=== PATIENT | female | born 1935 | race Caucasian/White ===

== ENCOUNTER → 2017-10-23 13:25 | Outpatient (CLI) | payer MEDICARE, SELFPAY ==
--- NOTE | 2017-10-23 13:31 | DI.REPORT_ITS ---
SYMPTOMS/DIAGNOSIS: LT HEEL PAIN, M79.672 LEFT ANKLE: No fracture or ankle mortise widening is seen. The talar dome appears intact. There are minimal degenerative changes. IMPRESSION: Negative left ankle. LEFT FOOT: There are mild deformities of the head of the fifth metatarsal as well as the proximal phalanx of the fifth toe consistent with old healed fractures. No acute fracture or bony erosions are seen. The joint spaces are well maintained. There are no heel spurs or plantar fascial calcification. IMPRESSION: Old healed fractures of the fifth proximal phalanx and head of the fifth metatarsal.
== END ==
PROVIDERS: PCP Internal Medicine; Visit Provider Nurse Practitioner Family
DX: M25.572 Pain in left ankle and joints of left foot (principal); M79.672 Pain in left foot; Z87.81 Personal history of (healed) traumatic fracture
CPT/HCPCS: 73610; 73630

== ENCOUNTER 2018-05-31 12:43 | Outpatient (REF) | payer MEDICARE, SELFPAY ==
[2018-05-31 17:52] LABS: Abs Immature Grans 0.02 k/cumm (0.0-0.09); Absolute Basophil Count 0.02 k/cumm (0.0-0.2); Absolute Eosinophil Count 0.45 k/cumm (0.0-0.7); Absolute Lymphocyte Count 1.65 k/cumm (1.2-3.4); Absolute Monocyte Count 0.49 k/cumm (0.11-0.7); Absolute Neutrophil Count 4.67 k/cumm (1.2-6.7); Basophils % 0.3; Eosinophils % 6.2; HCT 40.7 % (36.0-46.0); HGB 13.2 g/dL (12.0-15.5); Immature Grans % 0.3; Lymphocytes % 22.6; Mean Corp. HGB Concentration 32.4 g/dL (32.0-36.0); Mean Corpuscular Volume 95.5 fL (80-95); Mean Platelet Volume 10.2 fL (8.0-11.0); Monocytes % 6.7; Neutrophils % 63.9; Platelet Count 326 x1000/uL (130-400); RBC 4.26 m/cumm (4.00-5.20)
[2018-05-31 18:13] LABS: ALT 25 U/L (12-78); AST 24 U/L (15-37); Albumin 3.9 g/dL (3.4-5.0); Alkaline Phosphatase 89 U/L (46-116); Anion Gap 9.4 mmol/L (3-11); BUN 16 mg/dL (7-18); Bilirubin, Total 0.3 mg/dL (0.2-1.0); CO2 26.6 mmol/L (21.0-32.0); Calcium 9.8 mg/dL (8.5-10.1); Chloride 104 mmol/L (98-107); Glucose 87 mg/dL (70-100); Potassium 3.8 mmol/L (3.5-5.1); Sodium 140 mmol/L (136-145); Total Protein 7.8 g/dL (6.4-8.2)
[2018-05-31 19:01] LABS: ESR 23 MM/HR (0-30)
[2018-06-03 09:19] LABS: Cyclic Citrullinated Peptide <2.5 U/mL (<5.0)
[2018-06-03 10:03] LABS: Rheumatoid Factor 19 IU/mL (<12.5)
[2018-06-03 14:40] LABS: ANA Interpretation Negative (NEGAT)
== END 2018-05-31 13:03 ==
LOC: NCHCN 12:43
PROVIDERS: PCP Internal Medicine; Visit Provider Internal Medicine
DX: L27.0 Generalized skin eruption due to drugs and medicaments taken internally (principal); M19.90 Unspecified osteoarthritis, unspecified site
CPT/HCPCS: 80053; 85652; 86200; 85025; 86038; 86140; 86431

== ENCOUNTER 2018-07-12 15:31 | Outpatient (REF) | payer MEDICARE, SELFPAY ==
[2018-07-12 20:18] LABS: Bilirubin Small (Negative); Blood Large (Negative); Clarity Cloudy; Glucose Negative (Negative); Ketones Trace mg/dL (Negative); Leukocyte Esterase Small (Negative); Nitrite Negative (Negative); Specific Gravity >= 1.030 (1.005-1.025); Urobilinogen 0.2 EU/dL (Up TO 0.2)
[2018-07-12 20:41] LABS: Bacteria Many HPF (Negative); C & S Indicated? Yes; Casts Negative LPF (Negative); Crystals Many Amorphous HPF (Negative); Epithelial Cells Negative HPF (Negative); Mucus Negative (Negative); RBC >50 (0-2); WBC >50 HPF (0-5)
== END 2018-07-12 15:51 ==
LOC: NCHCN 15:31
PROVIDERS: PCP Internal Medicine; Visit Provider Nurse Practitioner Family
DX: R35.8 Other polyuria (principal)
CPT/HCPCS: 87077; 81003; 81015; 87086; 87186

== ENCOUNTER 2019-02-20 00:36 | Outpatient (CLI) | payer MEDICARE, SELFPAY ==
--- NOTE | 2019-02-20 10:33 | DI.MAMMO_ITS ---
EXAM: MAMMO SCREENING CLINICAL HISTORY: SCREENING Z12.39 TECHNIQUE: Mammograms were interpreted according to the usual protocol including computer analysis w [employer] CAD system, tomosynthesis and C-view imaging. COMPARISON: 2010 through 2016. FINDINGS: The breasts are composed of heterogeneously dense fibroglandular densities, Breast Density category C . No suspicious masses or suspicious microcalcifications are seen. No skin thickening or abnormal axillary lymph nodes are seen. There has been no significant change from prior exams. IMPRESSION: BIRADS Category 1, negative mammogram. Yearly screening mammography is recommended. BREAST DENSITY: The mammogram demonstrates the patient's breast tissue is dense. Dense breast tissue is very common and is not abnormal but dense breast tissue can make it harder to find cancer on a ma mmogram. Also, dense breast tissue may increase their breast cancer risk. This information about the result of the mammogram report was provided to the patient to raise their awareness. Use this report when you speak with the patient about their risks for breast cancer, which includes their family hist ory. At that time, you may recommend for more screening tests (Ultrasound or MRI) as they might be us eful based on their risk. A negative radiographic report should not delay biopsy if a dominant or clinically suspicious mass is present. Up to ten percent of cancers are not identified on mammography. A negative report may reinforce clinical impression. Adenosis and dense breasts may obscure an underlying neoplasm. False positive reports average 6 to 10%.
== END 2019-02-20 00:56 ==
PROVIDERS: PCP Internal Medicine; Visit Provider Internal Medicine
DX: Z12.31 Encounter for screening mammogram for malignant neoplasm of breast (principal)
CPT/HCPCS: 77063; 77067

== ENCOUNTER 2019-09-16 22:57 | Outpatient (REF) | payer MEDICARE, SELFPAY ==
[2019-09-16 22:06] LABS: HCT 38.1 % (36.0-46.0); HGB 12.2 g/dL (12.0-15.5); Mean Corpuscular Hemoglobin 31.1 pg (27.0-33.0); Mean Corpuscular Volume 97.2 fL (80-95); Mean Platelet Volume 10.8 fL (8.0-11.0); Platelet Count 320 x1000/uL (130-400); RBC 3.92 m/cumm (4.00-5.20); RBC Distribution Width 14.9 % (11.7-14.6); White Blood Cell Count 6.66 k/cumm (4.4-10.8)
[2019-09-16 22:14] LABS: ALT 52 U/L (14-59); AST 37 U/L (15-37); Albumin 3.6 g/dL (3.4-5.0); Alkaline Phosphatase 86 U/L (46-116); Anion Gap 9.4 mmol/L (3-11); BUN 22 mg/dL (7-18); Bilirubin, Total 0.4 mg/dL (0.2-1.0); CO2 24.6 mmol/L (21.0-32.0); CREATININE 0.94 mg/dL (0.55-1.02); Calcium 9.2 mg/dL (8.5-10.1); Chloride 105 mmol/L (98-107); Creatine Kinase 193 U/L (26-192); Estimated GFR 57.15 (mL/min/1.73m2); Glucose 118 mg/dL (74-106); NT-proBNP 4042 pg/mL (<300); Potassium 3.7 mmol/L (3.5-5.1); Sodium 139 mmol/L (136-145); TSH 51.79 uIU/mL (0.36-3.74); Total Protein 6.8 g/dL (6.4-8.2)
[2019-09-17 11:34] LABS: FREE T4 0.38 ng/dL (0.76-1.46)
== END 2019-09-16 23:17 ==
LOC: NCHCN 22:57
PROVIDERS: PCP Internal Medicine; Visit Provider Internal Medicine
DX: R53.83 Other fatigue; I50.9 Heart failure, unspecified; E03.9 Hypothyroidism, unspecified
CPT/HCPCS: 80053; 82550; 85027; 83880; 84439; 84443

== ENCOUNTER 2019-09-17 09:29 | Outpatient (CLI) | payer MEDICARE, SELFPAY ==
--- NOTE | 2019-09-17 14:34 | DI.RAD_ITS ---
EXAM: XR CHEST 2V PA LATERAL INDICATION: EXERTIONAL DYSPNEA, R06.09. COMPARISON: No exams were available for comparison TECHNIQUE: 2D digital imaging was performed. FINDINGS: The heart is enlarged. The aorta is mildly tortuous but does not appear dilated. There are increas ed densities seen in both lung bases. Findings could represent atelectasis or scarring. There are m ild underlying fibrotic changes. No effusions are seen. There are no thoracic compression fractures . IMPRESSION: Cardiomegaly. Basilar densities could represent scarring or atelectasis. DATA REPOSITORY: RADIATION DOSE DELIVERED:
== END 2019-09-17 09:49 ==
PROVIDERS: PCP Internal Medicine; Visit Provider Internal Medicine
DX: R06.09 Other forms of dyspnea (principal); I51.7 Cardiomegaly; R91.8 Other nonspecific abnormal finding of lung field
CPT/HCPCS: 71046

== ENCOUNTER 2019-09-18 13:00 | Outpatient (CLI) | payer MEDICARE, SELFPAY | END 2019-09-18 13:20 | PROVIDERS: PCP Internal Medicine; Visit Provider Internal Medicine | DX: I49.9 Cardiac arrhythmia, unspecified (principal); R06.09 Other forms of dyspnea | CPT/HCPCS: 93225 ==

== ENCOUNTER 2019-09-19 16:25 | Outpatient (CLI) | payer MEDICARE, SELFPAY | END 2019-09-19 16:45 | PROVIDERS: PCP Internal Medicine; Visit Provider Internal Medicine | DX: I49.3 Ventricular premature depolarization (principal); I49.1 Atrial premature depolarization | CPT/HCPCS: 93226 ==

== ENCOUNTER 2019-09-19 22:10 | Inpatient (IN) | payer MEDICARE, SELFPAY ==
[2019-09-19] VITALS (18 sets, daily range): BP systolic 124–167; BP diastolic 84–95; PULSE 83–110; RESP 14–28; TEMP 36.5; O2SAT 88–95
--- NOTE | 2019-09-19 22:00 | RT.EKG_ITS ---
APPROVED REPORT Exam: Resting ECG Patient Location: E HR:105 bpm ECG Measurements Heart Rate 105 AXIS MN 166 P 54 QRSd 154 QRS -13 QT 384 T 129 QTc 497 <Conclusion> Sinus tachycardia...rate> 99 Atrial premature complexes...SV complexes w/ short R-R intvls Probable left atrial enlargement...P >50mS, <-0.10mV V1 Left bundle branch block...QRSd>120, broad/notched R ST elevation secondary to IVCD...Multiple VCG criteria I have reviewed and interpreted ECG and agree with software generated interpretation.
--- NOTE | 2019-09-19 22:34 | W.ED.GENAD ---
Discharge Plan Disposition Patient Disposition: [facility] INPATIENT Condition: Fair Discharge Details Chief Complaint: SOB Clinical Impression: CHF (congestive heart failure) Admit Date/Time: 09/20/19 01:22 Admit Provider: Shady Crowe Attending Provider: Shady Crowe Primary Care Provider: Nghia Gomez ED Provider: Luke Santiago Medical Decision Making Patient presenting to ED with increasing shortness of breath and chest pressure. Pretty much constant today. Appears to have probable CHF. Chest x-ray just a few days ago unremarkable except for cardiomegaly and some basilar atelectasis. Laboratory studies showed an elevated BNP at that time in the 4000 range. Tonight's EKG continues to show a left bundle branch block which is been present. IV established, laboratory studies ordered, portable chest x-ray ordered, and patient to be given aspirin, nitroglycerin, Lasix. Chest x-ray shows some increased markings in the bases bilaterally. Laboratory studies show that the BNP has gone up. Troponin is negative. Kidney function remains normal. Patient has responded to the nitroglycerin and Lasix. Nitroglycerin ointment ordered. Case discussed with hospitalist for admission for further evaluation and management of new CHF of unknown etiology at this point. Patient aware of findings and reason for admission. Medical Records Medical records reviewed: Yes I reviewed the patient's medical records. Lab Data Lab results reviewed: Yes I reviewed the patient's lab results. ECG Data Interpretation: Please see EKG report. HPI General Mode of arrival: wheelchair. Date/Time Provider Initiated Documentation: 09/19/19 22:20. Limitations to Documentation: no limitations. Information obtained by: patient, RN notes reviewed and old records reviewed. HPI Narrative: Patient presents to ED with increasing shortness of breath and chest pressure. She has also developed edema in her lower extremities. Patient reports that over the course of the last few weeks she has had increasing shortness of breath. Initially seemed to be with exertion. She does describe some chest pressure. She has seen primary care and has had labs and chest x-ray done. She is scheduled for echo and stress testing later this month. She did just turn in a Holter monitor in today. She reports that she is now short of breath with chest pressure just at rest. She is unable to sleep flat at night and has been using her recliner. She does continue to make urine. She denies fever or cough. There is been no travel out of [place]. There is been no [id number] visitors or exposure to [place] that she is aware of. She has no GI complaints. She has never had a edema in her feet or ankles before. Related Data Home Medications Medication Instructions Recorded Confirmed Flovent HFA 2 puff INHALATION DAILY 04/15/14 09/19/19 acetaminophen-codeine 1 ea PO Q6H PRN #15 tab 04/15/14 09/19/19 [Tylenol-Codeine #3] albuterol sulfate [ProAir HFA] 2 puff INHALATION PRN PRN 04/15/14 09/19/19 Flovent HFA 2 puff IN BID 04/11/17 09/19/19 levothyroxine 50 mcg PO DAILY 09/19/19 09/19/19 Previous Rx's Medication Instructions Recorded acetaminophen-codeine 1 ea PO Q6H PRN #15 tab 04/15/14 [Tylenol-Codeine #3] Allergies Allergy/AdvReac Type Severity Reaction Status Date / Time No Known Allergies Allergy Unverified 09/19/19 22:54 General Stated Complaint: SOB ALBERT: 2 Review of Systems Narrative: 12/23 Review of Systems completed and is negative except as stated above in HPI (Systems reviewed: Const, Eyes, ENT, Resp, CV, GI, , MSK, Skin, Neuro) PFSH Medical History Asthma (Chronic) HTN (hypertension) (Chronic) Hypothyroid (Chronic) Surgical History H/O arthroscopy of knee (Acute) Social History Smoking/Tobacco Use Status: Never Alcohol Intake: never Drug use: Never Do you feel safe at home: Yes Do you feel safe in your relationship?: Yes Exam Narrative Exam Narrative: Vitals: Afebrile. Elevated blood pressure and heart rate. Tachypneic but with normal room air pulse ox. Const: WDWN elderly female in NAD but clearly tachypneic. HEENT: NC/AT. Normal facial exam. Eyes: Normal conjunctiva and sclera. Neck: Supple. Trachea midline. Lungs: Tachypneic but no distress. Lungs with rales at both bases. Cor: RRR with slight murmur. Good radial pulses. GI: Soft. NT/ND. No guarding or rebound. Neuro: A+O x 3. Normal speech, mentation, gait. Cranial nerves II - XII grossly intact. No gross motor or sensory deficit. Ext: No C/C. 1+ bilateral lower extremity edema involving feet and ankles. Skin: Warm and dry without rash. Course Vital Signs Vital signs: Vital Signs Temperature 97.7 F 09/19/19 22:25 Pulse 110 H 09/19/19 22:25 Respiratory Rate 18 09/19/19 22:25 Blood Pressure 161/92 H 09/19/19 22:25 Pulse Oximetry 95 09/19/19 22:25 Temperature 97.7 F 09/19/19 22:25 Temperature Source Skin 09/19/19 22:25 Pulse 110 H 09/19/19 22:25 Respiratory Rate 22 09/19/19 22:31 Respiratory Effort Accessory Muscle Use 09/19/19 22:31 Respiratory Depth Shallow 09/19/19 22:31 Respiratory Pattern Normal 09/19/19 22:31 Blood Pressure 161/92 H 09/19/19 22:25 Blood Pressure Position Sitting 09/19/19 22:25 Pulse Oximetry 95 09/19/19 22:25 Oxygen Delivery Method Room Air 09/19/19 22:25 Oxygen Flow Rate 0 09/19/19 22:25 Pain Level 5 09/19/19 22:25 Comment 09/19/19 22:25
[2019-09-19] MEDS: Aspirin 81 MG CHEW 324 MG CH (22:43)
[2019-09-19] MEDS: Furosemide 20 MG/2 ML VIAL IVP (22:43)
[2019-09-19 22:45] LABS: Abs Immature Grans 0.02 k/cumm (0.0-0.09); Absolute Basophil Count 0.01 k/cumm (0.0-0.2); Absolute Eosinophil Count 0.14 k/cumm (0.0-0.7); Absolute Lymphocyte Count 2.34 k/cumm (1.2-3.4); Absolute Monocyte Count 0.79 k/cumm (0.11-0.7); Absolute Neutrophil Count 6.86 k/cumm (1.2-6.7); Basophils % 0.1; Eosinophils % 1.4; HCT 39.6 % (36.0-46.0); Immature Grans % 0.2 %; Mean Corp. HGB Concentration 32.8 g/dL (32.0-36.0); Mean Corpuscular Hemoglobin 31.1 pg (27.0-33.0); Mean Corpuscular Volume 94.7 fL (80-95); Mean Platelet Volume 10.3 fL (8.0-11.0); Monocytes % 7.8; Neutrophils % 67.5; Platelet Count 340 x1000/uL (130-400); RBC 4.18 m/cumm (4.00-5.20); RBC Distribution Width 14.7 % (11.7-14.6); White Blood Cell Count 10.16 k/cumm (4.4-10.8)
--- NOTE | 2019-09-19 23:03 | DI.RAD_ITS ---
EXAM: XR PORTABLE CHEST AP CLINICAL HISTORY: SOB TECHNIQUE: COMPARISON: CR XR CHEST 2V PA LATERAL from 09/17/2019 FINDINGS: Heart is enlarged. In comparison with examination of September 16, there is increasing radiodensity in t he lung bases with decreased inspiration, pleural effusions may now be present as well. The findings are suggestive CHF, infectious process not excluded, please correlate clinically, follow-up PA and l ateral chest recommended when clinically appropriate. IMPRESSION:
[2019-09-19 23:17] LABS: Magnesium 2.3 mg/dL (1.8-2.4); NT-proBNP 5690 pg/mL (<300)
--- NOTE | 2019-09-19 23:19 | DI.VRAD_ITS ---
PROCEDURE INFORMATION: Exam: XR Chest, 1 View Exam date and time: 09/19/2019 11:04 PM Age: 83 years old Clinical indication: Shortness of breath TECHNIQUE: Imaging protocol: XR of the chest Views: 1 view. COMPARISON: CR XR CHEST 2V PA LATERAL 09/17/2019 2:26 PM FINDINGS: Lungs: Slight increase in basilar parenchymal opacities may be related to atelectasis versus minimal infiltrate. Pleural space: Stable blunting of the costophrenic angles. Heart/Mediastinum: Stable cardiomegaly. Bones/joints: Unremarkable. IMPRESSION: Slight increase in basilar parenchymal opacities may be related to atelectasis versus minimal infiltrate. Dictated and Authenticated by: Idris Dennis MD. Ordering:SAMI Butler MD
[2019-09-19 23:23] LABS: Troponin I < 0.05 ng/mL (<0.06)
[2019-09-19 23:43] LABS: ALT 83 U/L (14-59); AST 57 U/L (15-37); Albumin 3.7 g/dL (3.4-5.0); Alkaline Phosphatase 102 U/L (46-116); BUN 26 mg/dL (7-18); Bilirubin, Total 0.5 mg/dL (0.2-1.0); CREATININE 0.95 mg/dL (0.55-1.02); Calcium 9.3 mg/dL (8.5-10.1); Chloride 100 mmol/L (98-107); Estimated GFR 56.46 (mL/min/1.73m2); Glucose 142 mg/dL (74-106); Potassium 3.9 mmol/L (3.5-5.1); Sodium 134 mmol/L (136-145); Total Protein 7.3 g/dL (6.4-8.2)
[2019-09-20] VITALS (100 sets, daily range): BP systolic 111–135; BP diastolic 75–99; PULSE 69–107; RESP 13–36; TEMP 36.2–36.8; O2SAT 88–95
--- NOTE | 2019-09-20 01:10 | W.PM.HP.N ---
Date of service: 09/20/19 Time of Service: 01:10 Assessment and Plan Assessment and plan (1) CHF (congestive heart failure): Status: Chronic Assessment and plan: CHF, new onset. Etiology not apparent. Hemodynamics and oxygenation satisfactory at present and is responding to treatment. Will complete troponins, continue diuresis and topical nitrates, check cardiac U/S Reviewed ADs, requests Full Code History of Present Illness History of Present Illness Chief Complaint: SOB Narrative: 83 female here with 2-3 weeks of progressive SANDY (associated with chest pressure?, unclear if this is distinct from the SOB itself), along with worsening orthopnea, and then ankle swelling in past 24 hours. In ER w/u of note for bibasilar rales, pedal edema, EKG with LBBB, CXR CHF, BNP 5690 and neg trop. Given 40 Lasix and SL NTG with marked improvement. Admitted for further eval and management. Review of Systems All systems reviewed & are unremarkable except as noted in HPI and below PFSH Social History Smoking/Tobacco Use Status: Never Alcohol Intake: never Drug use: Never Do you feel safe at home: Yes Do you feel safe in your relationship?: Yes Meds Home Medications and Allergies Home Medications Medication Instructions Recorded Confirmed Type Flovent HFA 2 puff INHALATION DAILY 04/15/14 09/19/19 History acetaminophen-codeine 1 ea PO Q6H PRN #15 tab 04/15/14 09/19/19 Rx [Tylenol-Codeine #3] albuterol sulfate [ProAir HFA] 2 puff INHALATION PRN PRN 04/15/14 09/19/19 History Flovent HFA 2 puff IN BID 04/11/17 09/19/19 History levothyroxine 50 mcg PO DAILY 09/19/19 09/19/19 History Allergies Allergy/AdvReac Type Severity Reaction Status Date / Time No Known Allergies Allergy Unverified 09/19/19 22:54 Exam Narrative Exam Narrative: 130/81, 83, 36.5, 17, 95% RA. HEENT unremarkable; neck w/o JVD or HJR; lungs rales x1/3 bilateral; heart PMI hypodynamic and enlarged, occ ectopic with 2/6 apical sys murmur; abdomen soft and NT; extremities 1+ pedal edema; neuro ox3 nonfocal Results Labs Result diagrams: 09/19/19 22:24 09/19/19 22:24 Labs: Laboratory Results - last 24 hr 09/19/19 09/19/19 09/19/19 22:24 22:24 22:24 WBC 10.16 RBC 4.18 Hgb 13.0 Hct 39.6 MCV 94.7 MCH 31.1 MCHC 32.8 RDW 14.7 H Plt Count 340 MPV 10.3 Immature Gran % 0.2 Neutrophils % 67.5 Lymphocytes % 23.0 Monocytes % 7.8 Eosinophils % 1.4 Basophils % 0.1 Absolute Neutrophils 6.86 H Absolute Lymphocytes 2.34 Absolute Monocytes 0.79 H Absolute Eosinophils 0.14 Absolute Basophils 0.01 Sodium 134 L Potassium 3.9 Chloride 100 Carbon Dioxide 21.0 Anion Gap 13.0 H BUN 26 H Creatinine 0.95 Estimated GFR/1.73 m2 56.46 Glucose 142 H Calcium 9.3 Magnesium 2.3 Total Bilirubin 0.5 AST 57 H ALT 83 H Alkaline Phosphatase 102 Troponin I < 0.05 NT-Pro-B Natriuret Pep 5690 H Total Protein 7.3 Albumin 3.7 Last Vital Signs Temp 36.5 C 09/19/19 22:25 Pulse 75 09/20/19 00:31 Resp 17 09/20/19 00:50 BP 130/81 09/20/19 00:31 Pulse Ox 95 09/20/19 00:30 COVID-19 Screening Have you,or household,traveled outside [place] in last 14 days?: No Had IN PERSON contact w/suspected or confirmed C-19 person: No
[2019-09-20] MEDS: Normal Saline Flush 10 ML SYR IVP ×2 (03:14→23:51)
[2019-09-20] MEDS: Levothyroxine 50 MCG TAB PO (08:00)
[2019-09-20] MEDS: Furosemide 20 MG/2 ML VIAL IVP ×2 (08:00→16:52)
[2019-09-20] MEDS: Mometasone 220 MCG 14 DOSE INHALER 1 PUFF IH ×2 (08:39→21:42)
[2019-09-20 08:41] LABS: Troponin I < 0.05 ng/mL (<0.06)
[2019-09-20 08:47] LABS: Anion Gap 10.6 mmol/L (3-11); BUN 19 mg/dL (7-18); CO2 24.4 mmol/L (21.0-32.0); CREATININE 0.72 mg/dL (0.55-1.02); Calcium 8.7 mg/dL (8.5-10.1); Chloride 99 mmol/L (98-107); Glucose 92 mg/dL (74-106); Potassium 3.3 mmol/L (3.5-5.1); Sodium 134 mmol/L (136-145)
--- NOTE | 2019-09-20 09:22 | PDOC.CMIN ---
- If Service Date Differs Date of service: 09/20/19 Time of Service: 09:22 Care Management Initial Assess REASON FOR HOSPITALIZATION:: CHF PAST MEDICAL HISTORY/PAST SURGICAL HISTORY:: Medical History . Asthma (Chronic). HTN (hypertension) (Chronic). Hypothyroid (Chronic). Surgical History . H/O arthroscopy of knee (Acute) PREVIOUS FUNCTIONAL STATUS/SOCIAL/FAMILY SUPPORTS:: Lara, who prefers to be called Sera, lives with her , Luke, in [facility]. She is independent at baseline. CURRENT FUNCTIONAL STATUS:: Pat is in the ICU under precautions while awaiting her Covid test results. CM is unable to visit with her at this time. Per report, she will have an echo on Sunday, as it appears that she has new onset CHF. CM will continue to follow. ADVANCE DIRECTIVES:: On file, Katiana Olsen listed as HCA. Has patient been provided with info about the portal/API?: No Did the patient sign up for the portal?: No CODE STATUS:: Full Code INSURANCE COVERAGE / FINANCIAL ISSUES:: [facility]/ [employer] CURRENT HOME/COMMUNITY SERVICES/EQUIPMENT:: Pat does not have equipment or current services in the community. PRIMARY CARE PHYSICIAN:: Nghia Gomez POTENTIAL DISCHARGE NEEDS:: Evaluations for further needs, follow up appointments. PATIENT/FAMILY EDUCATION NEEDS:: Review discharge instructions regarding activity levels and medications, discussion of self care needs including ask me three. ANTICIPATED BARRIERS TO DISCHARGE:: None identified at this time. TRANSPORTATION:: Via private vehicle by family. PLAN:: Anticipate Pat will return home when medically cleared. Evaluations needed to determine if additional support needed. Her will drive her home via private vehicle. She will follow up with her PCP and discharge plan of care. CM will continue to follow.
[2019-09-20] MEDS: Potassium Chloride 10 MEQ CAPCR 40 MEQ PO (09:50)
--- NOTE | 2019-09-20 10:54 | PHA.REVIEW ---
Pharmacy Admission Review - Admission Clinical Review CHF No Known Allergies Allergy (Unverified 09/19/19 22:54) Height 5 ft 10 in Weight 72.5 kg - Renal Dosing Renal Dosing: BUN 19 mg/dL (7-18) H D 09/20/19 07:55 Creatinine 0.72 mg/dL (0.55-1.02) 09/20/19 07:55 Medications needing adjustments: Reviewed (Crcl ~59.64 mL/min current meds okay) - Anticoagulation Anticoagulation: Hgb 13.0 g/dL (12.0-15.5) 09/19/19 22:24 Hct 39.6 % (36.0-46.0) 09/19/19 22:24 Plt Count 340 x1000/uL (130-400) 09/19/19 22:24 Creatinine 0.72 mg/dL (0.55-1.02) 09/20/19 07:55 DVT Prohphylaxis: Intervened (nothing ordered, will mention to provider) Therapeutic Anticoagulation: N/A - Opiate Usage Evaluate Pain Scale/Pains Meds: Reviewed Scheduled Bowel Reg ordered if on Opiates?: No (will mention to provider) - Relevant Labs Sodium 134 mmol/L (136-145) L 09/20/19 07:55 Potassium 3.3 mmol/L (3.5-5.1) L 09/20/19 07:55 Chloride 99 mmol/L (98-107) 09/20/19 07:55 Magnesium 2.3 mg/dL (1.8-2.4) 09/19/19 22:24 Electrolytes, C-Reactive P, ESR: Reviewed (scheduled potassium ordered) - DM Control DM Control: Glucose 92 mg/dL (74-106) D 09/20/19 07:55 Insulin Dosing: N/A - Heart Failure/AK Heart Failure/AK: Troponin I < 0.05 ng/mL (<0.06) 09/20/19 07:55 NT-Pro-B Natriuret Pep 5690 pg/mL (<300) H 09/19/19 22:24 EF%, RONNIE's, B-Blockers, Diuretics: Reviewed - BP Control BP Control: Blood Pressure 128/78 Blood Pressure 130/81 Blood Pressure 122/75 Blood Pressure 134/95 Blood Pressure 130/81 If elevated: N/A - Qtc Review If Elevated: N/A - IV to PO Switch IV Medications: N/A - Home Meds Home Med List reviewed: Reviewed (albuterol, flovent(mometasone therapeutic sub)) - Current meds Current Medication Order Review: Reviewed - Comments Comments/Follow Ups: watch weight, I/O's, Na, K+ (has scheduled potassium order), and for possible med changes (dvt/pe prophylaxis, BM meds)
--- NOTE | 2019-09-20 11:43 | PGE_ITS ---
Date of Service Date of service: 09/20/19 Time of Service: 11:43 Assessment and Plan Assessment and plan (1) CHF (congestive heart failure): Status: Chronic Assessment and plan: Patient presents with progressive dyspnea over the last few weeks is gotten worse in the last several days along with an elevated proBNP of over 5000 but negative troponin levels. Patient has evidence of moderately impaired LV function along with severe mitral regurgitation. Given her history of exertional chest discomfort along with her dyspnea ischemic heart disease need to be evaluated for. We will continue to diurese her over the weekend and get a formal full echocardiogram on Sunday along with a cardiology consultation as well as a Lexiscan stress MPI. Will start on low-dose metoprol ol to control her heart rate as well as for anti-ischemic effect. Qualifiers: Heart failure chronicity: acute Heart failure type: systolic Qualified Code(s): I50.21 - Acute systolic (congestive) heart failure (2) HTN (hypertension): Status: Chronic Assessment and plan: patient has not been on any meds recently for her BP. Once she is adequately diuresed, I will try her on low dose lisinopril for her CHF (3) Asthma: Status: Chronic Assessment and plan: no recent flareups, well controlled on Flovent and prn albuterol. Her recent dyspnea is unlike any of her asthma flare ups. Subjective Subjective Interval history since last seen: 83-year-old female past medical history essential hypertension, hypothyroidism, asthma who presented emergency department last night with exertional dyspnea for the last few weeks is gotten progressively worse over the last few days along with bilateral pedal and ankle edema as well as orthopnea. She is also had chest tightness with this as well. See Dr. Shady Crowe's H&P as well as Dr. Luke Santiago emergency room reports for details. Overnight she did well after receiving Lasix 20 mg IV and was placed on nitroglycerin paste. This morning she had some more chest tightness when she got up and ambulated around the intensive care unit. Troponin levels have been negative so far x2 sets. She is diuresed 950 mL of urine and her cumulative balance since last night is net -650 mL. Ankle edema has improved. She is not short of breath at rest now but only gets dyspneic with activity. On examination she is found to have a loud mitral regurgitant murmur and on [id number] ultrasound she is found to have severe mitral regurgitation on color flow Doppler. LV function appears to be moderately impaired with regional wall motion abnormalities involving the septum and inferoseptal wall Exam Narrative Exam Narrative: Elderly female who was asleep when I walked in the room but when awakened he is alert and oriented person place time circumstance. Lungs reveal bibasilar rales no rhonchi or wheezes. Heart is regular to slightly tachycardic with a loud 4/6 systolic murmur over the apex consistent with mitral vegetation and a palpable thrill. Abdomen soft nontender Lower extremities with trace to 1+ pedal and ankle edema. Objective Objective Clinical Data: Abnormal lab results 09/19/19 09/19/19 09/19/19 Range/Units 22:24 22:24 22:24 RDW 14.7 H (11.7-14.6) % Absolute Neutrophils 6.86 H (1.2-6.7) k/cumm Absolute Monocytes 0.79 H (0.11-0.7) k/cumm Sodium 134 L (136-145) mmol/L Potassium (3.5-5.1) mmol/L Anion Gap 13.0 H (3-11) mmol/L BUN 26 H (7-18) mg/dL Glucose 142 H (74-106) mg/dL AST 57 H (15-37) U/L ALT 83 H (14-59) U/L NT-Pro-B Natriuret Pep 5690 H (<300) pg/mL 09/20/19 Range/Units 07:55 RDW (11.7-14.6) % Absolute Neutrophils (1.2-6.7) k/cumm Absolute Monocytes (0.11-0.7) k/cumm Sodium 134 L (136-145) mmol/L Potassium 3.3 L (3.5-5.1) mmol/L Anion Gap (3-11) mmol/L BUN 19 H D (7-18) mg/dL Glucose (74-106) mg/dL AST (15-37) U/L ALT (14-59) U/L NT-Pro-B Natriuret Pep (<300) pg/mL Vital Signs Temperature 36.3 C L 09/20/19 08:32 Temperature Source Temporal Artery Scan 09/20/19 08:32 Pulse 81 09/20/19 08:00 Pulse 85 09/20/19 08:00 Respiratory Rate 19 09/20/19 08:00 Respiratory Effort Non-Labored 09/20/19 08:32 Respiratory Depth Normal 09/20/19 08:32 Respiratory Pattern Normal 09/20/19 08:32 Blood Pressure 128/78 09/20/19 08:00 Blood Pressure Mean 89 09/20/19 08:00 Blood Pressure Position Sitting 09/19/19 22:25 Pulse Oximetry 91 L 09/20/19 08:00 Oxygen Delivery Method Room Air 09/20/19 08:32 Oxygen Flow Rate 0 09/20/19 08:32 Pain Level 0 09/20/19 08:32 Comment 09/19/19 22:25 Intake & Output 09/19/19 09/19/19 09/20/19 11:59 23:59 11:59 Intake Total 300 / 300 Output Total 950 / 950 Balance -650 / -650 Weight 83.915 kg 72.5 kg Intake: Oral 300 / 300 Output: Urine 950 / 950 Other: Urine Color Yellow Urine Appearance Clear Urine Odor None Comment due to lasix. Voiding Methods Bedside Commode Laboratory Results WBC 10.16 k/cumm (4.4-10.8) 09/19/19 22:24 RBC 4.18 m/cumm (4.00-5.20) 09/19/19 22:24 Hgb 13.0 g/dL (12.0-15.5) 09/19/19 22:24 Hct 39.6 % (36.0-46.0) 09/19/19 22:24 MCV 94.7 fL (80-95) 09/19/19 22:24 MCH 31.1 pg (27.0-33.0) 09/19/19 22:24 MCHC 32.8 g/dL (32.0-36.0) 09/19/19 22:24 RDW 14.7 % (11.7-14.6) H 09/19/19 22:24 Plt Count 340 x1000/uL (130-400) 09/19/19 22:24 MPV 10.3 fL (8.0-11.0) 09/19/19 22:24 Immature Gran % 0.2 % 09/19/19 22:24 Neutrophils % 67.5 09/19/19 22:24 Lymphocytes % 23.0 09/19/19 22:24 Monocytes % 7.8 09/19/19 22:24 Eosinophils % 1.4 09/19/19 22:24 Basophils % 0.1 09/19/19 22:24 Absolute Neutrophils 6.86 k/cumm (1.2-6.7) H 09/19/19 22:24 Absolute Lymphocytes 2.34 k/cumm (1.2-3.4) 09/19/19 22:24 Absolute Monocytes 0.79 k/cumm (0.11-0.7) H 09/19/19 22:24 Absolute Eosinophils 0.14 k/cumm (0.0-0.7) 09/19/19 22: Absolute Basophils 0.01 k/cumm (0.0-0.2) 09/19/19 22:24 Sodium 134 mmol/L (136-145) L 09/20/19 07:55 Potassium 3.3 mmol/L (3.5-5.1) L 09/20/19 07:55 Chloride 99 mmol/L (98-107) 09/20/19 07:55 Carbon Dioxide 24.4 mmol/L (21.0-32.0) 09/20/19 07:55 Anion Gap 10.6 mmol/L (3-11) 09/20/19 07:55 BUN 19 mg/dL (7-18) H D 09/20/19 07:55 Creatinine 0.72 mg/dL (0.55-1.02) 09/20/19 07:55 Estimated GFR/1.73 m2 >= 60.00 (mL/min/1.73m2) 09/20/19 07:55 Glucose 92 mg/dL (74-106) D 09/20/19 07:55 Calcium 8.7 mg/dL (8.5-10.1) 09/20/19 07:55 Magnesium 2.3 mg/dL (1.8-2.4) 09/19/19 22:24 Total Bilirubin 0.5 mg/dL (0.2-1.0) 09/19/19 22:24 AST 57 U/L (15-37) H 09/19/19 22:24 ALT 83 U/L (14-59) H 09/19/19 22:24 Alkaline Phosphatase 102 U/L (46-116) 09/19/19 22:24 Troponin I < 0.05 ng/mL (<0.06) 09/20/19 07:55 NT-Pro-B Natriuret Pep 5690 pg/mL (<300) H 09/19/19 22:24 Total Protein 7.3 g/dL (6.4-8.2) 09/19/19 22:24 Albumin 3.7 g/dL (3.4-5.0) 09/19/19 22:24 Point of Care Ultrasound Note: Rarui-kc-pycl ultrasound the heart demonstrates moderately impaired LV function with regional wall motion abnormalities involving the septum and inferoseptum as well as severe mitral regurgitation. Left atrium appears to be significantly enlarged. Aortic valve has calcifications but no aortic regurgitant jet was seen. She has a small pericardial effusion ultrasound lungs reveals bibasilar interstitial lung process consistent with CHF.
[2019-09-20 13:07] LABS: Troponin I < 0.05 ng/mL (<0.06)
[2019-09-20 15:44] LABS: COVID-19 RT-PCR UVMMC Result Negative (Negative)
[2019-09-20] MEDS: Enoxaparin 40 MG/0.4 ML SYR SC (16:52)
[2019-09-20] MEDS: Metoprolol 12.5 MG TAB PO ×2 (16:52→23:51)
[2019-09-20] MEDS: Potassium Chloride 10 MEQ CAPCR 20 MEQ PO (21:41)
[2019-09-20] MEDS: Docusate Sodium 100 MG CAP PO (21:41)
--- NOTE | 2019-09-20 23:01 | NUR.NOTE ---
Nursing Note: PT choked on potassium capsule- refused 2nd tab and will not take any more
[2019-09-21] VITALS (60 sets, daily range): BP systolic 105–146; BP diastolic 65–91; PULSE 69–123; RESP 13–31; TEMP 36.2–36.4; O2SAT 93–97
[2019-09-21] MEDS: Levothyroxine 50 MCG TAB PO (06:27)
[2019-09-21 07:38] LABS: Anion Gap 8.7 mmol/L (3-11); BUN 21 mg/dL (7-18); CO2 26.3 mmol/L (21.0-32.0); CREATININE 0.72 mg/dL (0.55-1.02); Calcium 8.8 mg/dL (8.5-10.1); Chloride 98 mmol/L (98-107); Glucose 90 mg/dL (74-106); NT-proBNP 5142 pg/mL (<300); Potassium 3.8 mmol/L (3.5-5.1); Sodium 133 mmol/L (136-145)
[2019-09-21] MEDS: Mometasone 220 MCG 14 DOSE INHALER 1 PUFF IH ×2 (07:43→20:00)
[2019-09-21] MEDS: Docusate Sodium 100 MG CAP PO (08:05)
[2019-09-21] MEDS: Metoprolol 12.5 MG TAB PO ×2 (08:06→16:31)
[2019-09-21] MEDS: Furosemide 20 MG/2 ML VIAL IVP ×2 (08:06→16:31)
--- NOTE | 2019-09-21 08:22 | PDOC.CMPRO ---
- If Service Date Differs Date of service: 09/21/19 Time of Service: 08:22 Care Management Progress Note S/O:Pat was ambulating in her room when CM met with her. She was pleasant and engaged readily with CM. Pat stated that she is feeling much better. She asked CM to change the goal on her white board to thank all of the staff for their great care. Sera stated that she can be cranky but her smiles and demeanor belied her words. Clinically she is doing much better, per provider, and will be moved out of the ICU when a bed is available. She is scheduled to have an Echocardiogram tomorrow. A: Lara is an 83 year old woman admitted on 09/20/19 with CHF P: Sera will likely return home when medically cleared. Evaluations needed to determine if additional support needed. Her will drive her home via private vehicle. She will follow up with her PCP and discharge plan of care. CM will continue to follow.
[2019-09-21] MEDS: Potassium Chloride Liquid 20 MEQ PKT PO ×2 (11:04→21:00)
--- NOTE | 2019-09-21 11:11 | W.PM.PROGNOT ---
Date of Service Date of service: 09/21/19 Time of Service: 11:12 Assessment and Plan Assessment and plan (1) CHF (congestive heart failure): Status: Chronic Assessment and plan: Patient continues to improve with decrease in her weight and maintain a negative fluid balance. We will continue with IV Lasix for another 24 hours and then switch to oral diuretics. If her blood pressure will tolerate that I will consider putting her low-dose RONNIE inhibitor or ARB once she is euvolemic. Continue with low-dose Lopressor for anti-ischemic effect. Patient needs evaluation for coronary ischemia as well as a formal echocardiogram to evaluate LV and RV function as well as her valves. Rzzwi-hc-xuxy ultrasound demonstrated significant mitral regurgitation. Formal echocardiogram tomorrow will help clarify the severity then the patient will need a stress MPI study. Qualifiers: Heart failure chronicity: acute Heart failure type: systolic Qualified Code(s): I50.21 - Acute systolic (congestive) heart failure (2) HTN (hypertension): Status: Chronic Assessment and plan: patient has not been on any meds recently for her BP. Once she is adequately diuresed, I will try her on low dose lisinopril for her CHF (3) Asthma: Status: Chronic Assessment and plan: no recent flareups, well controlled on Flovent and prn albuterol. Her recent dyspnea is unlike any of her asthma flare ups. Patient is tolerating low-dose Lopressor with no exacerbation of asthma. (4) Generalized weakness: Status: Acute Assessment and plan: Patient complains of generalized weakness and deconditioning since she is developed her symptoms of CHF over the last few weeks. She would like formal physical therapy while she is hospitalized. Subjective Subjective Interval history since last seen: Patient is improving. She feels less dyspneic with activity. Per her nurse she ambulated out of ICU over the med/surgical floor and back to the ICU. No chest tightness. Weight is down to 70.9 kg and her net intake/output is -1500 mL. Heart rate is well controlled. She remains on low-dose Lopressor and IV Lasix. Formal echocardiogram will be done tomorrow to evaluate her LV and RV function as well as her mitral regurgitation. I will get a formal cardiology consult afterwards. Patient is requesting some physical therapy as she feels that over the last few weeks her muscles will become weaker in her legs are not as strong as they had been. Exam Narrative Exam Narrative: Elderly female sitting up at the bedside alert and oriented person place time circumstance. Neck veins are flat. Lungs are clear to auscultation anteriorly posteriorly with some fine bibasilar rales without wheezing or rhonchi. Heart is regular with an occasional extra systolic beat. Harsh holosystolic murmur grade 4/6 at the apex with a palpable thrill. Extremities without peripheral cyanosis or edema. Legs with varicose veins. Objective Objective Clinical Data: Abnormal lab results 09/21/19 Range/Units 06:29 Sodium 133 L (136-145) mmol/L BUN 21 H (7-18) mg/dL NT-Pro-B Natriuret Pep 5142 H (<300) pg/mL Vital Signs Temperature 36.3 C L 09/21/19 08:19 Temperature Source Temporal Artery Scan 09/21/19 08:19 Pulse 70 09/21/19 10:46 Pulse 88 09/21/19 10:46 Respiratory Rate 23 09/21/19 10:46 Respiratory Effort 09/21/19 08:19 Respiratory Depth Normal 09/21/19 08:19 Respiratory Pattern Normal 09/21/19 08:19 Blood Pressure 105/68 09/21/19 10:46 Blood Pressure Mean 74 09/21/19 10:46 Blood Pressure Position Supine 09/21/19 08:19 Pulse Oximetry 97 09/21/19 10:14 Oxygen Delivery Method Room Air 09/21/19 08:19 Oxygen Flow Rate 0 09/21/19 08:19 Pain Level 0 09/21/19 08:19 Comment 09/19/19 22:25 Intake & Output 09/20/19 09/20/19 09/21/19 11:59 23:59 11:59 Intake Total 300 / 1110 810 / 1110 240 / 240 Output Total 1150 / 2575 1425 / 2575 525 / 525 Balance -850 / -1465 -615 / -1465 -285 / -285 Weight 72.5 kg 70.9 kg Intake: IV Oral 300 / 1100 800 / 1100 240 / 240 Output: Urine 1150 / 2575 1425 / 2575 525 / 525 Other: Urine Color Yellow Pale Yellow Yellow Urine Appearance Clear Clear Cloudy Sediment Urine Odor None None None Comment due to lasix. due to lasix. Mixed with stool. Stool Occult Blood Negative Stool Size Moderate Moderate Stool Characteristics Soft Soft Formed Brown Brown Voiding Methods Bedside Commode Bedpan Bedside Commode Laboratory Results WBC 10.16 k/cumm (4.4-10.8) 09/19/19 22:24 RBC 4.18 m/cumm (4.00-5.20) 09/19/19 22:24 Hgb 13.0 g/dL (12.0-15.5) 09/19/19 22:24 Hct 39.6 % (36.0-46.0) 09/19/19 22:24 MCV 94.7 fL (80-95) 09/19/19 22:24 MCH 31.1 pg (27.0-33.0) 09/19/19 22:24 MCHC 32.8 g/dL (32.0-36.0) 09/19/19 22:24 RDW 14.7 % (11.7-14.6) H 09/19/19 22:24 Plt Count 340 x1000/uL (130-400) 09/19/19 22:24 MPV 10.3 fL (8.0-11.0) 09/19/19 22:24 Immature Gran % 0.2 % 09/19/19 22:24 Neutrophils % 67.5 09/19/19 22:24 Lymphocytes % 23.0 09/19/19 22:24 Monocytes % 7.8 09/19/19 22:24 Eosinophils % 1.4 09/19/19 22:24 Basophils % 0.1 09/19/19 22:24 Absolute Neutrophils 6.86 k/cumm (1.2-6.7) H 09/19/19 22:24 Absolute Lymphocytes 2.34 k/cumm (1.2-3.4) 09/19/19 22:24 Absolute Monocytes 0.79 k/cumm (0.11-0.7) H 09/19/19 22:24 Absolute Eosinophils 0.14 k/cumm (0.0-0.7) 09/19/19 22:24 Absolute Basophils 0.01 k/cumm (0.0-0.2) 09/19/19 22:24 Sodium 133 mmol/L (136-145) L 09/21/19 06:29 Potassium 3.8 mmol/L (3.5-5.1) 09/21/19 06:29 Chloride 98 mmol/L (98-107) 09/21/19 06:29 Carbon Dioxide 26.3 mmol/L (21.0-32.0) 09/21/19 06:29 Anion Gap 8.7 mmol/L (3-11) 09/21/19 06:29 BUN 21 mg/dL (7-18) H 09/21/19 06:29 Creatinine 0.72 mg/dL (0.55-1.02) 09/21/19 06:29 Estimated GFR/1.73 m2 >= 60.00 (mL/min/1.73m2) 09/21/19 06:29 Glucose 90 mg/dL (74-106) 09/21/19 06:29 Calcium 8.8 mg/dL (8.5-10.1) 09/21/19 06:29 Magnesium 2.3 mg/dL (1.8-2.4) 09/19/19 22:24 Total Bilirubin 0.5 mg/dL (0.2-1.0) 09/19/19 22:24 AST 57 U/L (15-37) H 09/19/19 22:24 ALT 83 U/L (14-59) H 09/19/19 22:24 Alkaline Phosphatase 102 U/L (46-116) 09/19/19 22:24 Troponin I < 0.05 ng/mL (<0.06) 09/20/19 12:37 NT-Pro-B Natriuret Pep 5142 pg/mL (<300) H 09/21/19 06:29 Total Protein 7.3 g/dL (6.4-8.2) 09/19/19 22:24 Albumin 3.7 g/dL (3.4-5.0) 09/19/19 22:24 COVID-19 PCR Negative (Negative) 09/20/19 02:00 Nasopharyn COVID-19 PCR Not Applicable 09/20/19 02:00 Ref Test Perform Site [facility] lab 09/20/19 02:00
[2019-09-21] MEDS: Normal Saline Flush 10 ML SYR IVP (16:29)
[2019-09-21] MEDS: Enoxaparin 40 MG/0.4 ML SYR SC (16:30)
[2019-09-22] VITALS (48 sets, daily range): BP systolic 114–134; BP diastolic 62–93; PULSE 64–92; RESP 11–26; TEMP 35.7–36.6; O2SAT 93–99
[2019-09-22] MEDS: Levothyroxine 50 MCG TAB PO (06:07)
[2019-09-22] MEDS: Mometasone 220 MCG 14 DOSE INHALER 1 PUFF IH ×2 (06:56→10:36)
--- NOTE | 2019-09-22 08:32 | PDOC.CMPRO ---
- If Service Date Differs Date of service: 09/22/19 Time of Service: 08:32 Care Management Progress Note S/O: A: Lara is an 83 year old woman admitted on 09/20/19 with CHF P: Pat will likely return home when medically cleared. Evaluations needed to determine if additional support needed. Her will drive her home via private vehicle. She will follow up with her PCP and discharge plan of care. CM will continue to follow.
--- NOTE | 2019-09-22 08:40 | CCONE_ITS ---
Date of service: 09/22/19 Time of Service: 08:41 Assessment and Plan Assessment and plan (1) CHF (congestive heart failure): Status: Chronic Qualifiers: Heart failure type: unspecified Heart failure chronicity: acute on chronic Qualified Code(s): I50.9 - Heart failure, unspecified (2) Hypothyroid: Status: Chronic Assessment and plan: This 83-year-old woman presented with several months of symptoms consistent with congestive heart failure. She has been appropriately treated with diuretics, with improvement. She has also been started on a low-dose beta-suki. An echocardiogram is pending to assess left ventricular function and the degree of reported mitral regurgitation. I would recommend that she be transitioned to a long-acting beta-suki such as metoprolol succinate prior to discharge. She also should be considered for either an RONNIE inhibitor or angiotensin receptor suki Thank you for the opportunity to participate in the care of this patient History of Present Illness History of Present Illness Chief Complaint: Shortness of breath Narrative: This is an 83-year-old woman with no significant past cardiac history. She reports that she was in her usual state of health and while visiting [facility] in April developed episodes where she would awaken from sleep in the middle of the night with difficulty breathing and rattling in her chest. This did not occur every night and she attributed it to her history of asthma. Because of the coronavirus the patient returned to the [facility] in mid May. She continued to experience periods where she would awaken from sleep with difficulty breathing. She also noted chest tightness and shortness of breath when she would exert herself. She is not someone who generally seeks medical attention and she persevered for months. She did note that she was limited in her ability to walk. At the end of last week the weather was very hot and humid and she was quite short of breath to the point where she saw her doctor as an outpatient. Reportedly a chest x-ray was done, read as negative. She also had a Holter monitor the results of which are not yet available. She continued to worsen and came to the emergency room where she was evaluated and admitted. A [id number]-fq-hrjq echocardiogram in the ER reported significant mitral regurgitation Patient has been treated with diuretics and has improved. She is no longer short of breath. She is not experiencing paroxysmal nocturnal dyspnea and the prior peripheral edema she had has resolved as well COUNTS INCLUDE 234 BEDS AT THE [facility] Medical History Asthma (Chronic) HTN (hypertension) (Chronic) Hypothyroid (Chronic) Surgical History H/O arthroscopy of knee (Acute) Social History Smoking/Tobacco Use Status: Never Alcohol Intake: never Drug use: Never Do you feel safe at home: Yes Do you feel safe in your relationship?: Yes Exam Narrative Exam Narrative: Well-developed well-nourished no acute distress Eyes Pupils: PERRL EOM: EOM intact bilaterally Neck Other: No neck vein distention carotid pulsations are normal there are no bruits Resp Other: Fine crackles at the bases Cardio Other: Regular with frequent extrasystoles, 2/6 apical systolic murmur, S3 at apex GI Inspection: normal to inspection Extrem Other: No peripheral edema, superficial varicosities Results Last Vital Signs Temp 36.3 C L 09/22/19 08:12 Pulse 75 09/22/19 06:12 Resp 18 09/22/19 06:12 BP 124/91 H 09/22/19 06:12 Pulse Ox 93 L 09/22/19 04:15 Labs Result diagrams: 09/19/19 22:24 09/21/19 06:29 EKG interpretations EKG EKG results cardiology: sinus rhythm Blocks, axis, hypertrophy, ST abn AV and intraventricular conduction: left bundle branch block (fixed/intermittent, complete/incomplete)
[2019-09-22] MEDS: Metoprolol 12.5 MG TAB PO ×2 (08:50)
[2019-09-22] MEDS: Potassium Chloride Liquid 20 MEQ PKT PO (08:51)
--- NOTE | 2019-09-22 09:04 | W.PM.PROGNOT ---
Date of Service Date of service: 09/22/19 Time of Service: 09:12 Assessment and Plan Assessment and plan (1) CHF (congestive heart failure): Status: Chronic Assessment and plan: Patient continues to improve. Weight is down to 70.3 kg. She is not requiring any oxygen and denies any dyspnea or chest pain. However patient has not been ambulating out of the room yet this morning. Again a convert her IV Lasix to oral Lasix and convert her Lopressor to long-acting Toprol. Still has nitroglycerin paste on which we will discontinue for her stress MPI. I will start her on low-dose RONNIE inhibitor lisinopril 5 mg daily. We will check an echocardiogram today. Patient will need some form of stress study to evaluate for ischemic heart disease. However, with her asthma, she is not a candidate for Lexiscan. She feels that she is not up for GXT w/ MPI at present. I will try to arrange outpatient stress MPI. I think ideally she should undergo stress GXT w/ echo which would not only evaluate for ischemic wall motion changes but evaluate her MR response to stress. Otherwise she could do a dobutamine stress echo or MPI. Qualifiers: Heart failure type: unspecified Heart failure chronicity: acute on chronic Qualified Code(s): I50.9 - Heart failure, unspecified (2) HTN (hypertension): Status: Chronic Assessment and plan: patient has not been on any meds recently for her BP. Once she is adequately diuresed, I will try her on low dose lisinopril for her CHF in additon to changing her lopressor to Toprol XL. (3) Asthma: Status: Chronic Assessment and plan: no recent flareups, well controlled on Flovent and prn albuterol. Her recent dyspnea is unlike any of her asthma flare ups. Patient is tolerating low-dose Lopressor with no exacerbation of asthma. (4) Generalized weakness: Status: Acute Assessment and plan: Patient complains of generalized weakness and deconditioning since she is developed her symptoms of CHF over the last few weeks. She would like formal physical therapy while she is hospitalized. Subjective Subjective Interval history since last seen: Patient had difficult night sleeping last night and feels very tired this morning but otherwise no chest pain and no dyspnea. She is not been up walking around the nursing unit yet. Dr. Molina, ram press operator, saw the patient this morning and agreed with current management. She is awaiting formal echocardiogram to evaluate the severity of the patient's LV dysfunction and mitral vegetation. She recommended addition of an RONNIE inhibitor which I plan to do today. I am also can switch the patient over to long-acting beta-suki. Dr. Molina did not making recommendations regarding selection of a stress test for evaluation of potential ischemic heart disease. I will schedule the patient for a Lexiscan stress MPI study. If we can get this done this afternoon that would be preferable otherwise we will schedule as an outpatient. Patient is anxious to return home she is also reluctant about taking more medications. Explained to her that she needs to follow her recommended regimen in order to prevent exacerbation of her heart failure. Exam Narrative Exam Narrative: Elderly female who looks younger than her stated age. She is alert and oriented person place time circumstance. Neck veins are flat Lungs are clear to auscultation Heart is regular rate and rhythm with a grade 3-4/6 holosystolic murmur over the apex. Abdomen is soft and nontender with normal active bowel sounds. Extremities without peripheral cyanosis or edema. Objective Objective Clinical Data: Vital Signs Temperature 36.3 C L 09/22/19 08:12 Temperature Source Temporal Artery Scan 09/22/19 08:12 Pulse 75 09/22/19 06:12 Pulse 80 09/22/19 06:12 Respiratory Rate 18 09/22/19 06:12 Respiratory Effort Non-Labored 09/22/19 04:15 Respiratory Depth Normal 09/22/19 04:15 Respiratory Pattern Normal 09/21/19 16:45 Blood Pressure 124/91 H 09/22/19 06:12 Blood Pressure Mean 97 09/22/19 06:12 Blood Pressure Position Supine 09/22/19 04:15 Pulse Oximetry 93 L 09/22/19 04:15 Oxygen Delivery Method Room Air 09/22/19 00:00 Oxygen Flow Rate 0 09/22/19 00:00 Pain Level 0 09/22/19 00:00 Comment 09/19/19 22:25 Intake & Output 09/21/19 09/21/19 09/22/19 11:59 23:59 11:59 Intake Total 540 / 860 320 / 860 Output Total 525 / 1300 775 / 1300 425 / 425 Balance 15 / -440 -455 / -440 -425 / -425 Weight 70.9 kg 70.3 kg Intake: IV Oral 540 / 840 300 / 840 Output: Urine 525 / 1300 775 / 1300 425 / 425 Other: Urine Color Yellow Pale Yellow Yellow Urine Appearance Cloudy Clear Clear Sediment Urine Odor None Normal None Comment Mixed with stool. voiding on commode. Urine is clear light yellow unable to obtain amount. Toilet paper in commode. Stool Occult Blood Negative Stool Size Moderate Moderate Moderate Stool Characteristics Soft Soft Soft Brown Formed Formed Brown Voiding Methods Bedside Commode Bedside Commode Bedside Commode Laboratory Results WBC 10.16 k/cumm (4.4-10.8) 09/19/19 22:24 RBC 4.18 m/cumm (4.00-5.20) 09/19/19 22:24 Hgb 13.0 g/dL (12.0-15.5) 09/19/19 22:24 Hct 39.6 % (36.0-46.0) 09/19/19 22:24 MCV 94.7 fL (80-95) 09/19/19 22:24 MCH 31.1 pg (27.0-33.0) 09/19/19 22:24 MCHC 32.8 g/dL (32.0-36.0) 09/19/19 22: RDW 14.7 % (11.7-14.6) H 09/19/19 22:24 Plt Count 340 x1000/uL (130-400) 09/19/19 22:24 MPV 10.3 fL (8.0-11.0) 09/19/19 22:24 Immature Gran % 0.2 % 09/19/19 22: Neutrophils % 67.5 09/19/19 22:24 Lymphocytes % 23.0 09/19/19 22:24 Monocytes % 7.8 09/19/19 22: Eosinophils % 1.4 09/19/19: Basophils % 0.1 09/19/19 22: Absolute Neutrophils 6.86 k/cumm (1.2-6.7) H 09/19/19 22:24 Absolute Lymphocytes 2.34 k/cumm (1.2-3.4) 09/19/19: Absolute Monocytes 0.79 k/cumm (0.11-0.7) H 09/19/19 22:24 Absolute Eosinophils 0.14 k/cumm (0.0-0.7) 09/19/19 22:24 Absolute Basophils 0.01 k/cumm (0.0-0.2) 09/19/19 22:24 Sodium 133 mmol/L (136-145) L 09/21/19 06:29 Potassium 3.8 mmol/L (3.5-5.1) 09/21/19 06:29 Chloride 98 mmol/L (98-107) 09/21/19 06:29 Carbon Dioxide 26.3 mmol/L (21.0-32.0) 09/21/19 06:29 Anion Gap 8.7 mmol/L (3-11) 09/21/19 06:29 BUN 21 mg/dL (7-18) H 09/21/19 06:29 Creatinine 0.72 mg/dL (0.55-1.02) 09/21/19 06:29 Estimated GFR/1.73 m2 >= 60.00 (mL/min/1.73m2) 09/21/19 06:29 Glucose 90 mg/dL (74-106) 09/21/19 06:29 Calcium 8.8 mg/dL (8.5-10.1) 09/21/19 06:29 Magnesium 2.3 mg/dL (1.8-2.4) 09/19/19 22:24 Total Bilirubin 0.5 mg/dL (0.2-1.0) 09/19/19 22:24 AST 57 U/L (15-37) H 09/19/19 22:24 ALT 83 U/L (14-59) H 09/19/19 22:24 Alkaline Phosphatase 102 U/L (46-116) 09/19/19 22:24 Troponin I < 0.05 ng/mL (<0.06) 09/20/19 12:37 NT-Pro-B Natriuret Pep 5142 pg/mL (<300) H 09/21/19 06:29 Total Protein 7.3 g/dL (6.4-8.2) 09/19/19 22:24 Albumin 3.7 g/dL (3.4-5.0) 09/19/19 22:24 COVID-19 PCR Negative (Negative) 09/20/19 02:00 Nasopharyn COVID-19 PCR Not Applicable 09/20/19 02:00 Ref Test Perform Site [facility] 09/20/19 02:00
[2019-09-22] MEDS: Lisinopril 5 MG TAB PO (09:39)
[2019-09-22] MEDS: Furosemide 20 MG TAB PO (09:39)
--- NOTE | 2019-09-22 09:56 | DI.US_ITS ---
APPROVED REPORT EXAM: Comprehensive 2D, Doppler, and color-flow Echocardiogram Patient Location: In-Patient Room/Bed: [id number] Commercial Housekeeper: Trina Morris RDCS (AE) Indications: CHF Other Information Study Quality: Good Conclusion Mildly dilated left ventricle. Estimated ejection fraction is 30 to 35%. There is global hypokinesi s The left atrium is moderately dilated. The right atrium is mildly dilated Normal right ventricular size and systolic function The aortic valve is mildly sclerotic and trileaflet without stenosis or regurgitation Mitral leaflets are mildly thickened. They do not coapt in systole. There is severe mitral regurgit ation There is mild to moderate tricuspid regurgitation. Estimated right ventricular systolic pressure is 46 mmHg There is trace pulmonic regurgitation Trivial circumferential pericardial effusion Ascending aorta is borderline dilated measuring 3.2 cm Wall motion Left Ventricle Left ventricle is moderately dilated. Left ventricular systolic function is moderately decreased. The re is normal left ventricular wall thickness. Regional wall motion abnormalities are noted. There is no ventricular septal defect visualized. Left ventricular thrombus is present. Left ventricular throm bus appears mobile. No left ventricular thrombus noted. LVEF is 32%. Right Ventricle The right ventricle is normal size. The right ventricular systolic function is normal. The RVSP is 46 .3 mmHg. Atria Left atrium is moderately dilated. Right atrium is mildly dilated. The interatrial septum is intact w ith no evidence for an atrial septal defect. Aortic Valve The Aortic valve is sclerotic. Aortic valve is trileaflet. There is no aortic valvular stenosis. No a ortic regurgitation is present. Mitral Valve The mitral valve is thickened but opens well. No evidence of mitral valve stenosis. severe mitral reg urgitation Mitral regurgitation jet is eccentrically directed. The mitral leaflets do not coapt in sy stole Tricuspid Valve The tricuspid valve is normal in structure. There is no tricuspid valve stenosis. Mild to moderate tr icuspid regurgitation. Pulmonic Valve The pulmonary valve is normal in structure. There is no pulmonic valvular stenosis. Trace pulmonic re gurgitation. Great Vessels The aortic root is normal in size. The ascending aorta is mildly dilated. 3.2 cm Aortic arch is not w ell visualized. IVC is normal in size and collapses >50% with inspiration. Pericardium Trivial circumferential pericardial effusion. 2D Dimensions IVSD d PLAX 1.05 cm F: 0.6-1.0 LV Vol A2C d MOD 189.2 mL LVPW d PLAX 1.03 cm F: 0.6 - 1.0 LV Vol A4C d MOD 179.8 mL LVID d PLAX 6.10 cm F: 3.8 - 5.2 LA vol/ BSA A2C s A-L 57.0 mL/m2 LVDs 5.15 cm F: 2.2 - 3.5 LA vol/ BSA A4C s A-L 55.9 mL/m2 Ao Root d 3.12 cm F: 2.7 - 3.3 LA Vol/ BSA Biplane s A-L 57.5 mL/m2 RA Area A4C 22.96 cm2 LA Area A4C s MOD 30.29 cm2 RA Vol/ BSA A4C s A-L 39.1 mL/m2 LA Area A2C s MOD 30.06 cm2 Ao Asc Diam d 3.23 cm F: 2.3 - 3.1 LV EF A4C MOD 31.0 % LV EF Teichholz 32.0 % LV EF A2C MOD 32.7 % LVEF (Berumen's) 31.92 % F: 54 - 74 LV EF Biplane MOD 31.9 % LV Volume 143.44 mL F: 46 - 106 SV 60.59 mL LV Volume Index 73.55 mL/m2 F: 29 - 61 SV Index 30.97 mL/m2 LV Vol Biplane MOD 189.8 mL FS 15.45 % M-Mode TAPSE 2.17 cm (M/F) >1.7 LV Diastology MV E' medial 0.041 (>0.07 m/s) E/A Ratio 1.9 LV E/e MED 35.00 (<14) MV E Vmax 1.43 (0.4-1.3 m/s) MV E' lateral 0.072 (>0.1 m/s) MV A Vmax 0.75 (0.4-1.3 m/s) LV E/e LAT 19.90 (<14) MV E/A Ratio 1.84 MV E/E' medial 35.04 MV E/E' lateral 19.91 Aortic Valve LVOT Area 2.92 cm2 AoV Area Vmax 1.68 cm2 LVOT Vmax 0.69 m/s AoV Area/ BSA (Vmax) 0.86 cm2/m2 LVOT Mean Fran. 0.51 m/s HENNA Mean Fran. 1.73 cm2 LVOT Peak Grad 1.9 mmHg HENNA Mean Fran. Index 0.88 cm2/m2 LVOT Mean Grad 1.1 mmHg LVOT VTI 0.087 m LVOT Diam s 1.90 cm AoV Vmax 1.20 m/s Velocity Ratio 0.57 AoV Mean Fran. 0.87 m/s AoV Peak Grad 5.7 mmHg LVOT SV 25.47 mL AoV Mean Grad 3.4 mmHg AoV VTI 0.194 m AoV Area VTI 1.31 cm2 AoV Area/ BSA (VTI) 0.67 cm/m2 Mitral Valve MV DT 174 (160-240 msec) MR Vmax 4.08 m/s MV PHT 50 msec MR VTI 1.088 m MV Area PHT 4.37 cm2 MR Peak Grad 66.7 mmHg MV VTI 0.344 m MR Mean Grad 40.1 mmHg MV Area VTI 0.74 (4.0-6.0 cm2) MR PISA Radius 0.97 cm MR EROA 0.51 cm2 MR Aliasing Velocity 0.35 m/s MR PISA 5.95 cm2 Pulmonary Valve PV Vmax 0.91 (0.5-1.5 m/s) RVOT Peak Gr. 1.46 mmHg PV Peak Grad 3.3 mmHg RVOT Mean Gr. 0.65 mmHg PV Mean Grad 2.1 mmHg RVOT VTI 0.082 m PV VTI 0.132 m RVOT Vmax 0.61 m/s Tricuspid Valve TR Peak Grad 43.3 mmHg TR Vmax 3.29 m/s RA Pressure 3.00 mmHg RVSP (TR) 46.3 mmHg
--- NOTE | 2019-09-22 11:00 | PT.INIE ---
Date of service: 09/22/19 Time of Service: 11:00 PT Notes Visit Reasons: Congestive heart failure Physical Therapy Inpatient Initial Evaluation Date: 09/22/2019 Referring Doctor: Marck Johnson MD PT Orders: PT CONSULT: DC non-PT dependent Precautions: Fall. Standard. Activity as tolerated Patient Profile/Admitting Diagnosis: Sera is an 83-year-old female with diagnosis of congestive heart failure and hypothyroidism on hospital day 3. PMHX: Medical History Asthma (Chronic) HTN (hypertension) (Chronic) Hypothyroid (Chronic) Surgical History H/O arthroscopy of knee (Acute) Social History/Home Situation: Sera lives with Dante in a private home in [place], [place]. She is independent with all aspects of ADLs without the need for an assistive ambulatory device nor adaptive equipment prior to admission. She has lived an active lifestyle and likes to bike. She also loves gardening. Equipment Owned/DME: None Subjective: Reports that she is not sure how much she is to be able to do because she has not done anything since she came in to this hospital. She was only willing to walk a short distance as she continues to feel weak. She is looking forward to hearing the results of her echocardiogram. Objective: General Observation: Patient seen resting in bed. Telemetry monitoring in place. IV access seen in the right UE. Mental Status: Alert and oriented x4 Pain: None reported ROM: Right Upper Extremity: Shoulder Flexion WFL. Shoulder abduction 0 to 60 degrees. Elbow flexion WFL. Wrist flexion WFL. Opening and closing of hand WFL. Left Upper Extremity: Shoulder Flexion WFL. Shoulder abduction WFL. Elbow flexion WFL. Wrist flexion WFL. Opening and closing of hand WFL. Right Lower Extremity: Hip flexion WFL. Hip abduction WFL. Knee flexion WFL. Ankle dorsiflexion WFL. Ankle plantarflexion WFL. Left Lower Extremity: Hip flexion WFL. Hip abduction WFL. Knee flexion WFL. Ankle dorsiflexion WFL. Ankle plantarflexion WFL. Strength: Right Upper Extremity: Shoulder flexors 4/5. Shoulder abductors 3-/5. Elbow flexors 4/5. Elbow extensors 4/5. Senior Vice President & General Counsel strong. Left Upper Extremity: Shoulder flexors 4/5. Shoulder abductors 4/5. Elbow flexors 4/5. Elbow extensors 4/5. Senior Vice President & General Counsel strong. Right Lower Extremity: Hip flexors 4/5. Hip abductors 4/5. Knee flexors 4/5. Knee extensors 4/5. Ankle dorsiflexors 4/5. Ankle plantarflexors 4/5. Left Lower Extremity: Hip flexors 4/5. Hip abductors 4/5. Knee flexors 4/5. Knee extensors 4/5. Ankle dorsiflexors 4/5. Ankle plantarflexors 4/5. Sensation: Intact as to pain and pressure on bilateral lower extremities. Bed Mobility/Transfers: Rolling supervision Supine to sit supervision Sit to supine supervision Sit to stand supervision Stand to sit supervision Bed to chair supervision Chair to bed supervision Gait: Tolerated ICU hallway ambulation of 100 feet with no assistive device requiring standby assist of PT with no breathlessness seen. However, nearly lost balance towards the end of the walk but was able to catch herself in time. Balance: Static Sitting: Normal Dynamic Sitting: Normal Static Standing: Good Dynamic Standing: Good Special Tests: Mobility Limitations Standardized Measure [facility] AM-PAC 6 clicks Basic Mobility Inpatient Short Form: Raw Score: 23 CMS Score: 11% deficit 4-stage balance test: We will to maintain together and semi-tandem stance on both sides for 10 seconds but was unable to do so with the full tandem and the 1 legged stance. Informed Consent/Education: Patient instructed in purpose of PT consult and plan of care. Assessment: Pat demonstrates functional mobility decline and decreased activity tolerance due to admitting diagnoses. She will benefit from skilled physical therapy services for physical conditioning, balance retraining, and for facilitating return to prior level of function in anticipation of discharge to home when medically cleared to do so. Patient presents with clinical signs and symptoms consistent with current/admitting diagnoses that have resulted to mobility limitations, gait instability, generalized weakness, and impairment of motor control as demonstrated by the following impairment level findings: 1. Decreased strength to B BUE/LE major muscle groups 2. Impaired standing balance 3. Impaired activity tolerance 4. Limitation of joint range of motion in right shoulder Impairments are contributing to the following functional limitations: 1. Increased fall risk 2. Ability to return to prior level function Patient is assessed as a 48150 low complexity based on the following: History: 83-year-old female with impairment level findings, functional limitations, and past medical history as indicated above Examination: Demonstrable impairment in strength, balance, and mobility level with underlying impairments and functional limitations as documented above Presentation:Evolving Decision Makin low complexity Goals: Goals X1 week 1. Supine-Sit independent 2. Sit-Supine independent 3. Sit-Stand independent 4. Stand-Sit independent 5. Bed-Chair independent 6. Chair-Bed independent 7. Independent gait on level surface with use of least restrictive device for at least 300 feet without report of pain nor dyspnea 8. Independent stair negotiation while holding onto bilateral rails for at least 10 steps without report of pain nor dyspnea 9. Independent with home exercise program 10. Good static and dynamic standing balance/tolerance Plan of Care/Treatment Plan: 1-2x/day, 7 days/week x 1 week. Plan of care has been reviewed with the DEPARTMENT DIRECTOR providing the service under Physical Therapy direction. Initiate Physical Therapy intervention for strengthening, bed mobility, transfers, gait, stairs, balance training, use of assistive device. DISCHARGE RECOMMENDATIONS: Outpatient physical therapy services for continued physical conditioning and advanced level balance exercises. TREATMENT CODE/TIME: 46307 x 23 minutes beginning at 11:00 AM. Thank you for the opportunity to participate in the care of this patient. Colette Perez PT, DPT, CLT [facility] [place], [place]
--- NOTE | 2019-09-22 11:21 | W.HOLTRPT ---
Date of service: 09/22/19 Time of Service: 11:21 Holter Monitor Report Holter Monitor Note: This is a 24-hour Holter monitor report Predominant rhythm was sinus with an average heart rate of 90 bpm. Minimum heart rate was 72 and maximum 109 There were rare ventricular ectopic beats and rare couplets. There were 2 runs of nonsustained ventricular tachycardia, one lasting 4 beats and one 9 beats in duration There were frequent atrial premature beats, atrial pairs and triplets and 12 runs of premature atrial contractions longest of which was 15 beats There was no atrial fibrillation There were no pauses greater than 2 seconds There was no bradycardia
--- NOTE | 2019-09-22 13:04 | CHAPLAIN ---
Lara, who prefers to be called Sera, was resting in her room when I visited. She said that after a quiet weekend, this morning she has been very busy with tests, PT, and consults. Sera is a member of the [employer] and in the past has been very active in the voodoo. She is less active now, but still involved. Her , Dante, is very supportive and has been in touch by phone. Not being able to have him visiting has been disappointing for both of them, Sera said. She hopes to be discharged today with follow up care planned.
[2019-09-22] MEDS: Metoprolol CR 25 MG TABCR PO (13:06)
--- NOTE | 2019-09-22 14:47 | PT.INNT ---
Date of service: 09/22/19 Time of Service: 14:48 PT Notes Visit Reasons: Congestive heart failure pt refused PT this pm, indicating that she was too tired. She was waiting for vision rehabilitation therapist to share results from her echo, and is hoping to go home so she can get proper rest. Will check in with her tomorrow.
--- NOTE | 2019-09-22 16:39 | PDOC.CMDIS ---
- If Service Date Differs Date of service: 09/22/19 Time of Service: 16:39 LACE Index Scoring Tool - Questions: Length of Stay (in days): 2 Acuity (Admit via E.D.?): Yes Comorbidities: Congestive Heart Failure E.D. Visits: 1 - Answers: Total Score: 8 Risk of Readmission: Low Risk Care Management Discharge Reason for Hospitalization: CHF Discharge Plan: Pat will be discharged home with new home health nursing. She will follow up with Cardiology and her PCP and discharge plan of care. Pat will transport via private vehicle with her . Patient/Family Education Needs: Discharge plan, limitations, follow up plan, Ask me Three Services Needed at Discharge: Home Health Care Services
--- NOTE | 2019-09-22 18:10 | W.PM.DS.N ---
Date of service: 09/22/19 Time of Service: 18:10 DS: Diagnosis Discharge Diagnosis (1) CHF (congestive heart failure): Status: Chronic Asessment and Plan: See hospital course below. Patient presented with symptoms of exertional dyspnea and chest pain was ruled out for myocardial infarction with negative troponin levels. proBNP was over 5000 and her chest x-ray was consistent with CHF and her echocardiogram demonstrated heart failure with reduced ejection fraction with an EF of 30 to 35% with global hypokinesis moderately dilated left atrium mildly dilated right atrium and a mildly dilated left ventricle. Aortic valve was sclerotic but not stenotic. Mitral valve had severe regurgitation. Patient had circumferential trivial pericardial effusion. Patient responded to IV and oral Lasix and was started on low-dose lisinopril and low-dose Toprol-XL. Cardiology was consulted as noted below. Patient was discharged home on lisinopril 2.5 mg daily along with Toprol-XL 25 mg daily and Lasix 20 mg orally twice daily. She is also given potassium chloride 20 mcg twice a day. And nitroglycerin 0.4 mg sublingual every 5 minutes as needed chest pain. She is instructed to follow-up with Dr. Gomez in 1 week. Specialty clinic will be calling her with a follow-up appointment with Dr. Shady Reyes. Patient needs outpatient stress MPI study or stress echo to evaluate for ischemic burden. (2) HTN (hypertension): Status: Chronic Asessment and Plan: Patient had a diagnosis on her chart of hypertension although she was not actively taking any medications for hypertension. Blood pressure was well controlled with Toprol-XL and lisinopril. (3) Asthma: Status: Chronic Asessment and Plan: No changes were made to her asthma medications (4) Generalized weakness: Status: Acute Asessment and Plan: Patient received physical therapy while she was in the hospital. She may benefit from continued outpatient therapy. She subjectively feels that her muscles are becoming weaker from sedentary Discharge Plan Disposition Patient Disposition: HOME W/HOME HEALTH SERVICE Condition: Improving Discharge Details Chief Complaint: SOB Clinical Impression: CHF (congestive heart failure) Reason For Visit: CHF Admit Date/Time: 09/20/19 01:22 Admit Provider: Shady Crowe Attending Provider: Shady Crowe Primary Care Provider: Nghia Gomez ED Provider: Luke Santiago [facility] Course Hospital Course: 83-year-old female with history of hypertension and recently diagnosed hypothyroidism presents emergency department with few weeks of exertional dyspnea and chest pain. She was found to be in acute congestive heart failure as evidenced by an elevated proBNP of 5600 and chest x-ray that demonstrated cardiomegaly as well as increased radiodensity in the lung bases and possible pleural effusions. Serial troponin levels were obtained and came back within normal limits at less than 0.05. Patient was initially treated with IV Lasix and then switched over to oral Lasix. Echocardiogram was performed and demonstrated severely reduced LV function with an ejection fraction of 30 to 35% with global hypokinesis and mildly dilated left ventricle. She was also found to have severe mitral regurgitation. Patient was started on low-dose Lopressor which was titrated and then switched to metoprolol succinate 25 mg daily. Patient was started on lisinopril 5 mg daily and placed on potassium supplementation. Dr. Neena Molina, grain buyer, was consulted and agreed with current management see her note for details. On the day of discharge patient was ambulating around the nursing unit without exertional chest pain or dyspnea. Patient was desiring to return home. I explained the patient that she still needs to be evaluated for potential underlying ischemic heart disease and will need an outpatient stress MPI study. I had considered performing a Lexiscan stress MPI but because of her history of asthma this is contraindicated. Patient could potentially perform a gated exercise treadmill study with MPI imaging as an outpatient next week. If she is unable to exercise on a treadmill then she could potentially be referred to [facility] for a dobutamine stress echo or dobutamine MPI study. She will need follow-up with cardiology regarding her severe cardiomyopathy and mitral regurgitation. Home Meds and New Rx's Prescriptions: New potassium chloride 20 mEq Packet 20 meq PO BID Qty: 60 RF: 1 nitroglycerin [Nitrostat] 0.4 mg Tablet, Sublingual 0.4 mg sublingual Q5 MIN PRN X3 PRNQty: 30 RF: 0 lisinopril 5 mg Tablet 5 mg PO DAILY Qty: 30 RF: 1 furosemide 20 mg Tablet 20 mg PO BID@0830,1600 Qty: 60 RF: 1 metoprolol succinate 25 mg Tablet Extended Release 24 Hr 25 mg PO DAILY Qty: 30 RF: 1 Continued albuterol sulfate [ProAir HFA] 200 PUFF HFA aerosol inhaler 2 puff Inhalation PRN PRNRF: 0 Flovent HFA 12 GM HFA aerosol inhaler 2 puff Inhalation DAILY RF: 0 acetaminophen-codeine [Tylenol-Codeine #3] 1 TAB tablet 1 ea PO Q6H PRN (Reason: Pain) Qty: 15 RF: 0 Flovent HFA 120 PUFF HFA aerosol inhaler 2 puff IN BID RF: 0 levothyroxine 50 mcg tablet 50 mcg PO DAILY RF: 0 Discharge Instructions Instructions: Heart Failure (DC), Mitral Regurgitation (DC) Additional Instructions: get follow up labs in one week to monitor your kidney function and electrolytes as well as the BNP (hormone secreted by the heart in heart failure) Referrals: Shady Reyes MD [MD CONSULTING PHYSICIAN] - (you should receive a call next week for follow up visit with the grain buyer, if you do not then ask for the Specialty clinic at [facility]) Nghia Gomez MD [Primary Care Provider] - (follow up in the office within one week) Activity:: Activity as Tolerated Equipment/Supplies:: No Equipment Needed Diet:: Low Sodium Discharge Orders Discharge Orders: Discharge Order (Routine); Ordered 09/22/19 Ordered By: Marck Prado Other Ambulatory Orders: Basic Metabolic Panel (Routine) Timeframe: 1 Week Facility: [facility] - Location: Laboratory Outpatient Ordered By: Marck Prado Magnesium (Routine) Timeframe: 1 Week Facility: [facility] - Location: Laboratory Outpatient Ordered By: Marck Prado NT-proBNP (Routine) Timeframe: 1 Week Facility: [facility] - Location: Laboratory Outpatient Ordered By: Marck Prado Discharge Data Discharge Date/Time-TO BE ENTERED AT DEPARTURE: 09/22/19 17:45 DS: Summary Status at Discharge Functional status at discharge: independent ambulation Overall status at discharge: patient is progressing back to baseline Mental Status: mental status grossly normal Speech and Movement: speech and movement normal Mood: congruent mood Affect: normal affect Exam Narrative Exam Narrative: Elderly female who looks younger than her stated age. She is alert and oriented person place time circumstance. Neck veins are flat Lungs are clear to auscultation Heart is regular rate and rhythm with a grade 3-4/6 holosystolic murmur over the apex. Abdomen is soft and nontender with normal active bowel sounds. Extremities without peripheral cyanosis or edema. Psych Mental Status: mental status grossly normal Speech and Movement: speech and movement normal Mood: congruent mood Affect: normal affect DS: Data Vitals/I&O Vitals and I&O: Vital Signs Temperature 36.1 C L 09/22/19 12:00 Temperature Source Temporal Artery Scan 09/22/19 12:00 Pulse 84 09/22/19 12:03 Pulse 76 09/22/19 14:00 Respiratory Rate 09/22/19 14:00 Respiratory Effort Non-Labored 09/22/19 12:00 Respiratory Depth Normal 09/22/19 12:00 Respiratory Pattern Normal 09/21/19 16:45 Blood Pressure 134/84 09/22/19 12:03 Blood Pressure Mean 95 09/22/19 12:03 Blood Pressure Position Supine 09/22/19 12:00 Pulse Oximetry 99 09/22/19 12:00 Oxygen Delivery Method Room Air 09/22/19 12:00 Oxygen Flow Rate 0 09/22/19 12:00 Pain Level 0 09/22/19 12:00 Comment 09/19/19 22:25 Intake & Output 09/21/19 09/22/19 09/22/19 23:59 11:59 23:59 Intake Total 320 / 860 350 / 600 250 / 600 Output Total 775 / 1300 425 / 575 150 / 575 Balance -455 / -440 -75 / 25 100 / 25 Weight 70.3 kg Intake: IV Oral 300 / 840 350 / 590 240 / 590 Output: Urine 775 / 1300 425 / 575 150 / 575 Other: Urine Color Pale Yellow Yellow Yellow Urine Appearance Clear Clear Clear Urine Odor Normal None None Comment voiding on commode. Urine is clear light yellow unable to obtain amount. Toilet paper in commode. Stool Occult Blood Negative Negative Stool Size Moderate Moderate Moderate Stool Characteristics Soft Soft Soft Formed Formed Brown Voiding Methods Bedside Commode Bedside Commode Bedside Commode [facility] Medical History Asthma (Chronic) HTN (hypertension) (Chronic) Hypothyroid (Chronic) Surgical History H/O arthroscopy of knee (Acute) Social History Smoking/Tobacco Use Status: Never Alcohol Intake: never Drug use: Never Do you feel safe at home: Yes Do you feel safe in your relationship?: Yes
--- NOTE | 2019-09-22 18:50 | PDOC.HHF2F_ITS ---
Home Health Certification Home Health Certification: 1. Encounter Date and Reason I certify that HONORIO JOY was seen by Marck Prado on 09/22/19 and that I had a [id number] encounter with this patient that meets the physician face to face encounter requirements. 2. Clinical Findings Supporting Skilled Need and Homebound Status I certify that home health services are medically necessary, include either intermittent correction and/or physical/speech therapy, and that this tim ent is homebound in that absences from the home require considerable and taxing effort and are infrequent or of short duration, or are attributable to the need to receive medical care. [X] (a) Attached documentation from encounter provides clinical findings supporting skilled need and homebound status (including what assistance patient requires to leave the home). The encounter with the patient was in whole, or in part, for the following medical condition, which is the primary reason for home health care: CHF Fdc: Patient is congestive heart failure necessitates nursing to monitor her degree of heart failure as well as her response to medications. Nursing to educate the patient about her CHF as well as her medications. Monitoring to include measuring blood pressure and pulse as well as monitoring for signs of weight gain and edema as well as pulmonary evaluation. Nursing to coordinate with patient's PCP regarding management of her CHF. Physical Therapy: Speech Therapy: Homebound: Patient CHF causes significant dyspnea prohibiting the patient from traveling outside of her home other than for follow-up with her PCP or her strike operations officer. 3. Certification and Authentication I certify that I composed the above information based on my clinical judgement relating to this patient's medical condition and, if applicable, clinical findings communicated to me by the NPP or inpatient physician who performed the Home Health Referral. All further orders will be obtained through Dr. Nghia Gomez (Community Based Physician - PCP)
--- NOTE | 2019-09-23 16:00 | INDS_ITS ---
Date of service: 09/23/19 PT Notes Visit Reasons: Congestive heart failure Inpatient Physical Therapy Discharge Summary Dates: 09/23/2019 Dates of Service: 09/22/2019 only This is a clinical summary of care provided on the duration of dates listed above. No charge was made in the completion of this documentation. Referring Doctor: Marck Johnson MD PT Orders: PT CONSULT: DC non-PT dependent Precautions: Fall. Standard. Activity as tolerated Patient Profile/Admitting Diagnosis: Sera is an 83-year-old female with diagnosis of congestive heart failure and hypothyroidism on hospital day 3. PMHX: Medical History Asthma (Chronic) HTN (hypertension) (Chronic) Hypothyroid (Chronic) Surgical History H/O arthroscopy of knee (Acute) Social History/Home Situation: Sera lives with Dante in a private home in [place], [place]. She is independent with all aspects of ADLs without the need for an assistive ambulatory device nor adaptive equipment prior to admission. She has lived an active lifestyle and likes to bike. She also loves gardening. Equipment Owned/DME: None Subjective: NT Objective: General Observation: NT Mental Status: NT Pain: NT ROM: Right Upper Extremity: Shoulder Flexion WFL. Shoulder abduction 0 to 60 degrees. Elbow flexion WFL. Wrist flexion WFL. Opening and closing of hand WFL. Left Upper Extremity: Shoulder Flexion WFL. Shoulder abduction WFL. Elbow flexion WFL. Wrist flexion WFL. Opening and closing of hand WFL. Right Lower Extremity: Hip flexion WFL. Hip abduction WFL. Knee flexion WFL. Ankle dorsiflexion WFL. Ankle plantarflexion WFL. Left Lower Extremity: Hip flexion WFL. Hip abduction WFL. Knee flexion WFL. Ankle dorsiflexion WFL. Ankle plantarflexion WFL. Strength: Right Upper Extremity: Shoulder flexors 4/5. Shoulder abductors 3-/5. Elbow flexors 4/5. Elbow extensors 4/5. Insurance Instructor strong. Left Upper Extremity: Shoulder flexors 4/5. Shoulder abductors 4/5. Elbow flexors 4/5. Elbow extensors 4/5. Insurance Instructor strong. Right Lower Extremity: Hip flexors 4/5. Hip abductors 4/5. Knee flexors 4/5. Knee extensors 4/5. Ankle dorsiflexors 4/5. Ankle plantarflexors 4/5. Left Lower Extremity: Hip flexors 4/5. Hip abductors 4/5. Knee flexors 4/5. Knee extensors 4/5. Ankle dorsiflexors 4/5. Ankle plantarflexors 4/5. Sensation: Intact as to pain and pressure on bilateral lower extremities. Bed Mobility/Transfers: Rolling supervision Supine to sit supervision Sit to supine supervision Sit to stand supervision Stand to sit supervision Bed to chair supervision Chair to bed supervision Gait: On evaluation, Lara tolerated ICU hallway ambulation of 100 feet with no assistive device requiring standby assist of PT with no breathlessness seen. However, nearly lost balance towards the end of the walk but was able to catch herself in time. Balance: Static Sitting: Normal Dynamic Sitting: Normal Static Standing: Good Dynamic Standing: Good Assessment: Pat demonstrates functional mobility decline and decreased activity tolerance due to admitting diagnoses. She will benefit from skilled physical therapy services for physical conditioning, balance retraining, and for facilitating return to prior level of function in anticipation of discharge to home when medically cleared to do so. Patient presents with clinical signs and symptoms consistent with current/admitting diagnoses that have resulted to mobility limitations, gait instability, generalized weakness, and impairment of motor control as demonstrated by the following impairment level findings: 1. Decreased strength to B BUE/LE major muscle groups 2. Impaired standing balance 3. Impaired activity tolerance 4. Limitation of joint range of motion in right shoulder Impairments are contributing to the following functional limitations: 1. Increased fall risk 2. Ability to return to prior level function Goals: Goals X1 week 1. Supine-Sit independent NOT MET 2. Sit-Supine independent NOT MET 3. Sit-Stand independent NOT MET 4. Stand-Sit independent NOT MET 5. Bed-Chair independent NOT MET 6. Chair-Bed independent NOT MET 7. Independent gait on level surface with use of least restrictive device for at least 300 feet without report of pain nor dyspnea NOT MET 8. Independent stair negotiation while holding onto bilateral rails for at least 10 steps without report of pain nor dyspnea NOT MET 9. Independent with home exercise program NOT MET 10. Good static and dynamic standing balance/tolerance NOT MET DISCHARGE RECOMMENDATIONS: Outpatient physical therapy services for continued physical conditioning and advanced level balance exercises. TREATMENT CODE/TIME: RADHA Thank you for the opportunity to participate in the care of this patient. Colette Perez PT, DPT, CLT [facility] [place], [place]
== END 2019-09-22 17:45 | disposition home health service (06) | DRG 292 ==
LOC: ER 09-20 01:37 → ICU 09-20 02:15
PROVIDERS: Admitting Provider General Practice; Emergency Provider Emergency Medicine; PCP Internal Medicine; Visit Provider Internal Medicine
DX: I50.21 Acute systolic (congestive) heart failure (principal); I42.9 Cardiomyopathy, unspecified; I08.0 Rheumatic disorders of both mitral and aortic valves; R53.1 Weakness; E03.9 Hypothyroidism, unspecified
CPT/HCPCS: 36415; 80048; 80053; 93005; 93227; 93306; 94640; 96374; 99222; 99233; 99239; 99253; 99285; J1650; U0003; 71045; 83735; 83880; 84484; 85025; 93010; 93226; J1941; J3490

== ENCOUNTER → 2019-09-22 07:55 | Outpatient (BNVA) | payer MEDICARE, SELFPAY | PROVIDERS: PCP Internal Medicine; Referring Provider Internal Medicine; Visit Provider Internal Medicine Cardiovascular Disease | DX: R69 Illness, unspecified (principal) ==

== ENCOUNTER 2019-09-23 01:12 | Emergency (ER) | payer MEDICARE, SELFPAY ==
[2019-09-23] VITALS (14 sets, daily range): BP systolic 121–157; BP diastolic 70–108; PULSE 64–87; RESP 11–20; TEMP 36.5; O2SAT 93–97
--- NOTE | 2019-09-23 01:15 | RT.EKG_ITS ---
APPROVED REPORT Exam: Resting ECG Patient Location: E HR:79 bpm ECG Measurements Heart Rate 79 AXIS MI 171 P 58 QRSd 160 QRS 0 QT 437 T 127 QTc 494 <Conclusion> Sinus rhythm...normal P axis, V-rate 60- 99 Atrial premature complexes...SV complexes w/ short R-R intvls Left atrial enlargement...P, P'>60mS, <-0.15mV V1 Left bundle branch block...QRSd>120, broad/notched R ST elevation secondary to IVCD...Multiple VCG criteria Negative for SCARBOSSA Criterian I have reviewed and interpreted ECG and agree with software generated interpretation.
--- NOTE | 2019-09-23 01:27 | ED.GENADUL_ITS ---
Discharge Plan Disposition Patient Disposition: HOME Condition: Good Discharge Details Chief Complaint: Chest Pain Clinical Impression: CHF (congestive heart failure) Primary Care Provider: Nghia Gomez ED Provider: Hawk Busch Home Meds and New Rx's Prescriptions: Continued albuterol sulfate [ProAir HFA] 200 PUFF HFA aerosol inhaler 2 puff Inhalation PRN PRNRF: 0 Flovent HFA 12 GM HFA aerosol inhaler 2 puff Inhalation DAILY RF: 0 acetaminophen-codeine [Tylenol-Codeine #3] 1 TAB tablet 1 ea PO Q6H PRN (Reason: Pain) Qty: 15 RF: 0 levothyroxine 50 mcg tablet 50 mcg PO DAILY RF: 0 potassium chloride 20 mEq Packet 20 meq PO BID Qty: 60 RF: 1 nitroglycerin [Nitrostat] 0.4 mg Tablet, Sublingual 0.4 mg sublingual Q5 MIN PRN X3 PRNQty: 30 RF: 0 lisinopril 5 mg Tablet 5 mg PO DAILY Qty: 30 RF: 1 furosemide 20 mg Tablet 20 mg PO BID@0830,1600 Qty: 60 RF: 1 metoprolol succinate 25 mg Tablet Extended Release 24 Hr 25 mg PO DAILY Qty: 30 RF: 1 Discharge Instructions Instructions: Heart Failure (ED) Additional Instructions: At this time your vital signs remained normal, you have a reassuring exam. As we discussed together it is likely that your symptoms are secondary to not being able to take your nighttime medications. I have given you your morning dose of your medications to go home with follow-up otherwise please fill your prescriptions and start taking them as directed tomorrow. If you notice any worsening of your symptoms, or any new symptoms such as vomiting, diarrhea, fever, chills, shortness of breath, chest pain, numbness, weakness, or fainting , please return immediately to the emergency department for reevaluation. Please follow up with your primary care provider as soon as possible for reassessment and reevaluation. As always, it was a pleasure participating in your medical care today. Referrals: Nghia Gomez MD [Primary Care Provider] - Medical Decision Making 83-year-old female with history of hypertension and recently diagnosed hypothyroidism who was recently admitted and just discharged less than 8 hours ago. During her stay she was admitted for congestive heart failure with an elevated proBNP, mild pleural effusions, and mild shortness of breath. Serial troponins were normal. Echo demonstrated heart failure with reduced ejection fraction with an EF of 30 to 35% with global hypokinesis moderately dilated left atrium mildly dilated right atrium and a mildly dilated left ventricle. Aortic valve was sclerotic but not stenotic. Mitral valve had severe regurgitation. Patient had circumferential trivial pericardial effusion. Patient was discharged home on lisinopril 2.5 mg daily along with Toprol-XL 25 mg daily and Lasix 20 mg orally twice daily. She is also given potassium chloride 20 mcg twice a day. And nitroglycerin 0.4 mg sublingual every 5 minutes as needed chest pain. She is instructed to follow-up with Dr. Gomez in 1 week. Outpatient stress test was started for the scheduling process. Unfortunately she was discharged at 6 PM. She was not able to fill any of her medication prescriptions. This evening after she got home she realized that there were many things that she needed to do and was quite active. She noticed some mild shortness of breath, however she states that this was notably less than when she first came in. She came to the ER secondary to the fact that she has none of her medications and she was concerned that she will not be able to get them until later tomorrow. At this time she states that she feels much better, she denies any significant chest pain. She denies any tearing or ripping sensation. The shortness of breath has resolved by the time she arrived here. She states no new or additional symptoms, and again reiterates that her symptoms are significantly more mild than when she was here before. Physical exam is notably unremarkable aside from minimal crackles in the bases. EKG shows evidence of left bundle branch block, unchanged from prior EKG 3 days ago. Negative for SCARBOSSA. Patient was given a single dose of her home nitroglycerin prescription had complete resolution of her symptoms although she was notably improved by the time she arrived though. I did discuss with the patient admission/observation to the hospital as well as additional labs and work-up similar to what she had during her stay here., and at this time through notable discussion, weighing the risks and benefits, utilizing a shared decision making process, and with a very clear discussion on the benefit of admission and labs and the risks associated with discharge including the unlikely but potential worst case scenario of or lifelong disability the patient has refused admission and would like to go home. Patient is of a appropriate age to make decisions. The patient is of sound mind, appears clinically sober, and has capacity to make decisions by my clinical exam. Respecting the patient's wishes, we will hold off on labs, imaging and admission they will be discharged home. With a notably thorough work-up over the last 3 days, including negative serial troponins, and a solid discharge plan including discharge medications we will continue with this plan and hold off on any additional or superfluous work-up at this time. We will give a dose to go home with of her Lasix, Toprol-XL 25 mg, and lisinopril. And nitroglycerin as she will not be able to get these filled immediately tomorrow morning. I had a long discussion regarding red flags for which the patient should immediately return. At this time her symptoms demonstrate normal vital signs with notable stability. Symptoms are clinically inconsistent with ACS. I have extensively reviewed the treatment plan and discharge instructions with the patient and their family. I have addressed all patient concerns at this time. The patient and family was made aware of what symptoms to monitor for that would warrant a return to the emergency department. Discussed the plan with the patient and family, they demonstrate verbal understanding and agreement with our assessment and plan at this time. [facility] General Date/Time Provider Initiated Documentation: 09/23/19 01:13 . HPI Narrative: 83-year-old female with history of hypertension and recently diagnosed hypothyroidism who was recently admitted and just discharged less than 8 hours ago. During her stay she was admitted for congestive heart failure with an elevated proBNP, mild pleural effusions, and mild shortness of breath. Serial troponins were normal. Echo demonstrated heart failure with reduced ejection fraction with an EF of 30 to 35% with global hypokinesis moderately dilated left atrium mildly dilated right atrium and a mildly dilated left ventricle. Aortic valve was sclerotic but not stenotic. Mitral valve had severe regurgitation. Patient had circumferential trivial pericardial effusion. Patient was discharged home on lisinopril 2.5 mg daily along with Toprol-XL 25 mg daily and Lasix 20 mg orally twice daily. She is also given potassium chloride 20 mcg twice a day. And nitroglycerin 0.4 mg sublingual every 5 minutes as needed chest pain. She is instructed to follow-up with Dr. Gomez in 1 week. Outpatient stress test was started for the scheduling process. Unfortunately she was discharged at 6 PM. She was not able to fill any of her medication prescriptions. This evening after she got home she realized that there were many things that she needed to do and was quite active. She noticed some mild shortness of breath, however she states that this was notably less than when she first came in. She came to the ER secondary to the fact that she has none of her medications and she was concerned that she will not be able to get them until later tomorrow. At this time she states that she feels much better, she denies any significant chest pain. She denies any tearing or ripping sensation. The shortness of breath has resolved by the time she arrived here. She states no new or additional symptoms, and again reiterates that her symptoms are significantly more mild than when she was here before. Patient denies any other complaints of fever, chills, nausea vomiting diarrhea numbness tingling or weakness. Related Data Home Medications Medication Instructions Recorded Confirmed Flovent HFA 2 puff INHALATION DAILY 04/15/14 09/23/19 acetaminophen-codeine 1 ea PO Q6H PRN #15 tab 04/15/14 09/23/19 [Tylenol-Codeine #3] albuterol sulfate [ProAir HFA] 2 puff INHALATION PRN PRN 04/15/14 09/23/19 levothyroxine 50 mcg PO DAILY 09/19/19 09/23/19 furosemide 20 mg PO BID@0830,1600 #60 tab 09/22/19 09/23/19 lisinopril 5 mg PO DAILY #30 tab 09/22/19 09/23/19 metoprolol succinate 25 mg PO DAILY #30 tab 09/22/19 09/23/19 nitroglycerin [Nitrostat] 0.4 mg SUBLINGUAL Q5 MIN PRN X3 09/22/19 09/23/19 PRN #30 tab potassium chloride 20 meq PO BID #60 ea 09/22/19 09/23/19 Previous Rx's Medication Instructions Recorded acetaminophen-codeine 1 ea PO Q6H PRN #15 tab 04/15/14 [Tylenol-Codeine #3] furosemide 20 mg PO BID@0830,1600 #60 tab 09/22/19 lisinopril 5 mg PO DAILY #30 tab 09/22/19 metoprolol succinate 25 mg PO DAILY #30 tab 09/22/19 nitroglycerin [Nitrostat] 0.4 mg SUBLINGUAL Q5 MIN PRN X3 09/22/19 PRN #30 tab potassium chloride 20 meq PO BID #60 ea 09/22/19 Allergies Allergy/AdvReac Type Severity Reaction Status Date / Time No Known Allergies Allergy Unverified 09/23/19 01:28 General ALBERT: 2 Review of Systems All systems reviewed & are unremarkable except as noted in HPI and below PFSH Medical History Asthma (Chronic) HTN (hypertension) (Chronic) Hypothyroid (Chronic) Surgical History H/O arthroscopy of knee (Acute) Social History Smoking/Tobacco Use Status: Never Alcohol Intake: never Drug use: Never Do you feel safe at home: Yes Do you feel safe in your relationship?: Yes Exam Narrative Exam Narrative: 1.Const: Well-nourished, Well-developed, appearing stated age 2.Eyes: PERRL, no conjunctival injection, and symmetrical lids. 3.ENT: Atraumatic external nose and ears. Moist MM. Neck: Symmetric, trachea midline, No thyromegaly. 4.CVS: +S1/S2, No murmurs or gallops. Peripheral pulses 2+ and equal in all extremities. Brisk capillary refill in all extremities. 5.RESP: Unlabored respiratory effort. Clear to auscultation bilaterally. No wheezes or rhonchi, minimal crackles in bases. 6.GI: Soft, Nontender/Nondistended, No hepatosplenomegaly. No guarding or rebound. 7.MSK: Normocephalic/Atraumatic, Extremities w/o deformity or ttp No cyanosis or clubbing, Normal movement of all extremities 8.Skin: Warm, Dry. No rashes or lesions. 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 Sensation grossly intact, no focal neurologic deficits. 10.Psych: (AAO) x3. Appropriate mood and affect
[2019-09-23] MEDS: Metoprolol CR 25 MG TABCR PO (02:28)
[2019-09-23] MEDS: Lisinopril 20 MG TAB PO (02:28)
[2019-09-23] MEDS: Furosemide 20 MG TAB PO (02:33)
== END 2019-09-23 02:55 | disposition home or self-care (01) ==
PROVIDERS: Emergency Provider Student in an Organized Health Care Education/Training Program; PCP Internal Medicine
DX: I11.0 Hypertensive heart disease with heart failure (principal); I50.9 Heart failure, unspecified
CPT/HCPCS: 93005; 99284; 93010

== ENCOUNTER → 2019-10-06 10:34 | Outpatient (BNVA) | payer MEDICARE, SELFPAY | PROVIDERS: PCP Internal Medicine; Referring Provider Internal Medicine; Visit Provider Internal Medicine Cardiovascular Disease | DX: I34.0 Nonrheumatic mitral (valve) insufficiency (principal); I50.9 Heart failure, unspecified; I11.0 Hypertensive heart disease with heart failure | CPT/HCPCS: 99215 ==

== ENCOUNTER 2019-10-24 12:58 | Outpatient (REF) | payer MEDICARE, SELFPAY ==
[2019-10-24 20:24] LABS: Anion Gap 9.2 mmol/L (3-11); BUN 27 mg/dL (7-18); CO2 26.8 mmol/L (21.0-32.0); CREATININE 0.87 mg/dL (0.55-1.02); Calcium 9.6 mg/dL (8.5-10.1); Chloride 103 mmol/L (98-107); FREE T4 0.67 ng/dL (0.76-1.46); Glucose 93 mg/dL (74-106); Potassium 4.6 mmol/L (3.5-5.1); Sodium 139 mmol/L (136-145)
== END 2019-10-24 13:18 ==
LOC: NCHCN 12:58
PROVIDERS: PCP Internal Medicine; Visit Provider Internal Medicine
DX: E03.9 Hypothyroidism, unspecified (principal)
CPT/HCPCS: 80048; 84439; 84443

== ENCOUNTER 2019-12-02 00:46 | Outpatient (CLI) | payer MEDICARE, SELFPAY ==
--- NOTE | 2019-12-02 07:00 | DI.US_ITS ---
APPROVED REPORT EXAM: Comprehensive 2D, Doppler, and color-flow Echocardiogram Patient Location: Out-Patient Dairy Hand: Trina Morris RDCS (AE) Indications: Congestive heart failure, Mitral Regurgitation Other Information Study Quality: Good Conclusion Dilated left ventricle. Estimated ejection fraction is 40 to 45% with global hypokinesis Compared to previous September 2019, left ventricular diastolic dimension has decreased slightly and overa ll EF is mildly improved, previously 32% Moderately dilated left atrium Sclerotic aortic valve without regurgitation or stenosis Thickened mitral leaflets, which now do coapt in systole. There is severe mitral regurgitation Structurally normal tricuspid and pulmonic valves Mild tricuspid regurgitation. Estimated right ventricular systolic pressure is now 29 mmHg, previous ly 42 Wall motion Left Ventricle Left ventricle is mildly dilated. Left ventricular systolic function is moderately decreased. There i s normal left ventricular wall thickness. There is global hypokinesis of the left ventricle. There is no ventricular septal defect visualized. LVEF is 40-45% Right Ventricle The right ventricle is normal size. The right ventricular systolic function is normal. The RVSP is 29 .2 mmHg. Right ventricle free wall is thin. Atria Left atrium is moderately dilated. The right atrium size is normal. The interatrial septum is intact with no evidence for an atrial septal defect. Aortic Valve The Aortic valve is sclerotic. Aortic valve is trileaflet. There is no aortic valvular stenosis. No a ortic regurgitation is present. Mitral Valve Mild mitral annular calcification. Thickened mitral leaflets No evidence of mitral valve stenosis. Se tiffany mitral regurgitation. Tricuspid Valve The tricuspid valve is normal in structure. There is no tricuspid valve stenosis. Mild tricuspid regu rgitation. Pulmonic Valve The pulmonary valve is normal in structure. There is no pulmonic valvular stenosis. Mild pulmonic reg urgitation. Great Vessels The aortic root is normal in size. The ascending aorta is borderline dilated. IVC is normal in size a nd collapses >50% with inspiration. Pericardium Trace pericardial effusion. 2D Dimensions IVSD d PLAX 1.03 cm F: 0.6-1.0 LV Vol A2C d MOD 178.1 mL LVPW d PLAX 1.04 cm F: 0.6 - 1.0 LV Vol A4C d MOD 156.4 mL LVID d PLAX 5.90 cm F: 3.8 - 5.2 LA vol/ BSA A2C s A-L 46.6 mL/m2 LVDs 4.90 cm F: 2.2 - 3.5 LA vol/ BSA A4C s A-L 39.0 mL/m2 Ao Root d 3.25 cm F: 2.7 - 3.3 LA Vol/ BSA Biplane s A-L 42.7 mL/m2 RA Area A4C 14.82 cm2 LA Area A4C s MOD 21.93 cm2 RA Vol/ BSA A4C s A-L 22.0 mL/m2 LA Area A2C s MOD 23.94 cm2 Ao Asc Diam d 3.29 cm F: 2.3 - 3.1 LV EF A4C MOD 37.5 % LV EF Teichholz 34.9 % LV EF A2C MOD 35.8 % LVEF (Berumen's) 37.85 % F: 54 - 74 LV EF Biplane MOD 37.9 % LV Volume 133.76 mL F: 46 - 106 SV 65.36 mL LV Volume Index 73.49 mL/m2 F: 29 - 61 SV Index 35.90 mL/m2 LV Vol Biplane MOD 172.7 mL FS 16.95 % LV Diastology E/A Ratio 0.6 MV E Vmax 0.62 (0.4-1.3 m/s) MV A Vmax 1.10 (0.4-1.3 m/s) MV E/A Ratio 0.55 Aortic Valve LVOT Area 3.39 cm2 AoV Area Vmax 2.21 cm2 LVOT Vmax 0.91 m/s AoV Area/ BSA (Vmax) 1.21 cm2/m2 LVOT Mean Fran. 0.55 m/s HENNA Mean Fran. 1.84 cm2 LVOT Peak Grad 3.3 mmHg HENNA Mean Fran. Index 1.01 cm2/m2 LVOT Mean Grad 1.5 mmHg LVOT VTI 0.185 m LVOT Diam s 2.05 cm AoV Vmax 1.39 m/s Velocity Ratio 0.65 AoV Mean Fran. 1.00 m/s AoV Peak Grad 7.8 mmHg LVOT SV 62.77 mL AoV Mean Grad 4.4 mmHg AoV VTI 0.246 m AoV Area VTI 2.56 cm2 AoV Area/ BSA (VTI) 1.40 cm/m2 Mitral Valve MV DT 307 (160-240 msec) MR Vmax 5.72 m/s MV PHT 89 msec MR VTI 2.121 m MV Area PHT 2.47 cm2 MR Peak Grad 130.9 mmHg MV VTI 0.307 m MR Mean Grad 80.9 mmHg MV VTI Annulus 0.309 m MR PISA Radius 0.53 cm MV Area VTI 2.06 (4.0-6.0 cm2) MR EROA 0.11 cm2 MR Aliasing Velocity 0.35 m/s MR PISA 1.74 cm2 Pulmonary Valve PV Vmax 1.06 (0.5-1.5 m/s) RVOT Peak Gr. 2.45 mmHg PV Peak Grad 4.5 mmHg RVOT Mean Gr. 1.05 mmHg PV Mean Grad 2.4 mmHg RVOT VTI 0.133 m PV VTI 0.227 m RVOT Vmax 0.78 m/s Tricuspid Valve TR Peak Grad 26.1 mmHg TR Vmax 2.56 m/s RA Pressure 3.00 mmHg RVSP (TR) 29.2 mmHg
== END 2019-12-02 01:06 ==
PROVIDERS: PCP Internal Medicine; Visit Provider Internal Medicine Cardiovascular Disease
DX: I08.1 Rheumatic disorders of both mitral and tricuspid valves (principal); I50.9 Heart failure, unspecified; R07.9 Chest pain, unspecified; I11.0 Hypertensive heart disease with heart failure
CPT/HCPCS: 93306; 99214

== ENCOUNTER 2019-12-23 10:48 | Outpatient (REF) | payer MEDICARE, SELFPAY ==
[2019-12-23 22:05] LABS: FREE T4 0.83 ng/dL (0.76-1.46); TSH 10.07 uIU/mL (0.36-3.74)
== END 2019-12-23 11:08 ==
LOC: NCHCN 10:48
PROVIDERS: PCP Internal Medicine; Visit Provider Internal Medicine
DX: E03.9 Hypothyroidism, unspecified (principal)
CPT/HCPCS: 84439; 84443

== ENCOUNTER 2019-12-30 00:10 | Outpatient (CLI) | payer MEDICARE, SELFPAY ==
--- NOTE | 2019-12-30 06:45 | DI.NM_ITS ---
APPROVED REPORT Exam: Pharmacologic Patient Location: Out-Patient Room/Bed: Stress Nurse: Pratibha Lang RN BMI: 20.80 Baseline Rhythm: Sinus Rhythm, LBBB Comment: PAC's, occasional PVC's Indications: Congestive Heart Failure. Exertional chest pressure. 4/10 sternal, nonradiating chest he aviness, relieved with rest and no associated symptoms reported. Medical History Medical History: CHF (EF 40-45%). Severe mitral regurgitation. Hypothyroidism. Asthma. HTN. Cardiac Medications: Aspirin. Nitroglycerin. Furosemide. Potassium Chloride. Metoprolol Succinate. Li sinopril. Allergies: Colchicine. Amoxicillin. Cardiac Risk Factors: HTN, Asthma Pretest Chest Pain Characteristics: No chest pain Exercise History: Physically active Lung Sounds: Clear to auscultation Heart Sounds: Regular, Murmur Stress Test Details Test: Pharmacologic stress testing performed using 0.4 mg of regadenoson per 5 mL given IV over 10 s econds. Reason for pharmacologic stress test: LBBB. Nuclear Acquisition: Rest Tc-99m/Stress Tc-99m 1 day Rest Isotope: Tc-99m Sestamibi. Dose: 11 Date: 12/30/2019 Injection Time: 0850 Stress Dose: 38 Date: 12/30/2019 Injection Time: 1050 HR Resting HR Supine: 85 bpm Max Heart Rate (APMHR): 138 bpm Target HR (85% APMHR): 117 bpm Max HR Achieved: 113 bpm % of APMHR: 81 Recovery HR: 94 bpm BP Resting BP Supine: 140/88 mmHg Max BP: 156/90 mmHg Recovery BP: 148/84 mmHg ECG Resting ECG: Sinus Rhythm, LBBB Ectopy: frequent PAC's, occasional PVC's Stress ECG: Sinus Rhythm, LBBB ST Change: Nondiagnostic V-pacing or LBBB Arrhythmia: frequent PAC's, atrial trigeminy, PVC's. Recovery ECG: Sinus Rhythm, LBBB Recovery ST Change: Nondiagnostic V-pacing or LBBB Recovery Arrhythmia: PAC's, PVC's. Clinical Stress Symptoms: None. Stress ECG Conclusion 1. This is a pharmacological stress test. 2. The patient had a left bundle branch at baseline. 3. The EKG portion of this exam is nondiagnostic. Stress Test Summary STAGE HR BP Symptoms NOTES Supine 85 140/88 1 min post Lexiscan injection 101 156/90 3 min post Lexiscan injection 105 142/86 6 min post Lexiscan injection 94 148/84 MPI Conclusion The patient's ejection fraction was 34% with stress. There was global hypokinesis. There was no evidence of ischemia on the imaging portion of the exam.
[2019-12-30] MEDS: Regadenoson 0.4 MG/5 ML SYR IVP (10:27)
== END 2019-12-30 00:30 ==
PROVIDERS: PCP Internal Medicine; Visit Provider Internal Medicine Cardiovascular Disease
DX: I50.9 Heart failure, unspecified (principal); I10 Essential (primary) hypertension; J45.909 Unspecified asthma, uncomplicated
CPT/HCPCS: 78452; 93016; 93018; 93017; J2785

== ENCOUNTER → 2020-01-06 09:47 | Outpatient (BNVA) | payer MEDICARE, SELFPAY | PROVIDERS: PCP Internal Medicine; Referring Provider Internal Medicine; Visit Provider Internal Medicine Cardiovascular Disease | DX: I34.0 Nonrheumatic mitral (valve) insufficiency (principal); I50.9 Heart failure, unspecified; I11.0 Hypertensive heart disease with heart failure | CPT/HCPCS: 99214 ==

== ENCOUNTER 2020-03-16 12:45 | Outpatient (REF) | payer MEDICARE, SELFPAY ==
[2020-03-16 13:54] LABS: FREE T4 1.01 ng/dL (0.76-1.46); TSH 3.47 uIU/mL (0.36-3.74)
== END 2020-03-16 13:05 ==
LOC: NCHCN 12:45
PROVIDERS: PCP Internal Medicine; Visit Provider Internal Medicine
DX: E03.9 Hypothyroidism, unspecified (principal)
CPT/HCPCS: 84439; 84443

== ENCOUNTER 2020-04-27 09:34 | Outpatient (REF) | payer MEDICARE, SELFPAY ==
[2020-04-28 10:32] LABS: Campylobacter PCR Negative (Negative); Salmonella PCR Negative (Negative); Shiga Toxin PCR Negative (Negative); Shigella/Enteroinvasive Ecoli Negative (Negative)
== END 2020-04-27 09:35 | disposition home or self-care (01) ==
LOC: NCHCN 09:34
PROVIDERS: PCP Internal Medicine; Visit Provider Internal Medicine
DX: R19.7 Diarrhea, unspecified (principal)
CPT/HCPCS: 87505; 82272; 83630

== ENCOUNTER 2020-04-29 16:46 | Outpatient (REF) | payer MEDICARE, SELFPAY ==
[2020-04-29 13:21] LABS: Anion Gap 9.2 mmol/L (3-11); BUN 24 mg/dL (7-18); CO2 28.8 mmol/L (21.0-32.0); CREATININE 0.9 mg/dL (0.55-1.02); Calcium 9.7 mg/dL (8.5-10.1); Chloride 105 mmol/L (98-107); Estimated GFR 59.94 (mL/min/1.73m2); Glucose 87 mg/dL (74-106); Potassium 3.8 mmol/L (3.5-5.1); Sodium 143 mmol/L (136-145)
== END 2020-04-29 16:47 | disposition home or self-care (01) ==
LOC: NCHCN 16:46
PROVIDERS: PCP Internal Medicine; Visit Provider Internal Medicine
DX: R19.7 Diarrhea, unspecified (principal)
CPT/HCPCS: 80048

== ENCOUNTER → 2020-12-21 09:41 | Outpatient (BNVA) | payer MEDICARE, SELFPAY | PROVIDERS: PCP Internal Medicine; Referring Provider Internal Medicine; Visit Provider Internal Medicine Cardiovascular Disease | DX: I34.0 Nonrheumatic mitral (valve) insufficiency (principal); I42.8 Other cardiomyopathies; I10 Essential (primary) hypertension | CPT/HCPCS: 99214; 99213 ==

== ENCOUNTER 2021-01-19 17:54 | Outpatient (CLI) | payer MEDICARE, SELFPAY ==
--- NOTE | 2021-01-19 13:15 | DI.RAD_ITS ---
Exam(s) XR KNEE LT 3V AP,LAT,MARYCARMEN EXAM: XR KNEE LT 3V AP,LAT,MARYCARMEN CLINICAL HISTORY: OA LT KNEE, M17.9. TECHNIQUE: 2D digital imaging was performed. COMPARISON: No exams were available for comparison FINDINGS: There is no evidence fracture. Possible small joint effusion. Age-related osteopenia. Advanced juan rowing of the medial compartment. Moderate narrowing of the patellofemoral compartment. Relative pr eservation of height of the lateral compartment. No osseous lesions. IMPRESSION: Degenerative changes as described above in the medial and patellofemoral compartments. DATA REPOSITORY: RADIATION DOSE DELIVERED:
== END 2021-01-19 18:14 ==
PROVIDERS: PCP Internal Medicine; Visit Provider Family Medicine
DX: M17.12 Unilateral primary osteoarthritis, left knee (principal)
CPT/HCPCS: 73562

== ENCOUNTER → 2021-03-31 07:58 | Outpatient (BNVA) | payer MEDICARE, SELFPAY | PROVIDERS: PCP Internal Medicine; Referring Provider Internal Medicine; Visit Provider Student in an Organized Health Care Education/Training Program | DX: M17.12 Unilateral primary osteoarthritis, left knee (principal); Z98.890 Other specified postprocedural states | CPT/HCPCS: 99213 ==

== ENCOUNTER 2021-06-14 15:31 | Outpatient (REF) | payer MEDICARE, SELFPAY ==
[2021-06-14 17:44] LABS: Anion Gap 7.6 mmol/L (3-11); BUN 25 mg/dL (7-18); CO2 27.4 mmol/L (21.0-32.0); CREATININE 0.8 mg/dL (0.55-1.02); Calcium 9.1 mg/dL (8.5-10.1); Chloride 106 mmol/L (98-107); FREE T4 0.86 ng/dL (0.76-1.46); Glucose 79 mg/dL (74-106); Potassium 4.2 mmol/L (3.5-5.1); Sodium 141 mmol/L (136-145); TSH 5.23 uIU/mL (0.36-3.74)
== END 2021-06-14 15:32 | disposition home or self-care (01) ==
LOC: NCHCN 15:31
PROVIDERS: PCP Internal Medicine; Visit Provider Internal Medicine
DX: E03.9 Hypothyroidism, unspecified (principal); I34.0 Nonrheumatic mitral (valve) insufficiency; I50.20 Unspecified systolic (congestive) heart failure
CPT/HCPCS: 80048; 84439; 84443

== ENCOUNTER → 2021-12-08 09:12 | Outpatient (BNVA) | payer MEDICARE, SELFPAY | PROVIDERS: PCP Internal Medicine; Referring Provider Internal Medicine; Visit Provider Student in an Organized Health Care Education/Training Program | DX: M17.12 Unilateral primary osteoarthritis, left knee (principal) | CPT/HCPCS: 20610; J1040 ==

== ENCOUNTER 2021-12-27 07:51 | Outpatient (CLI) | payer MEDICARE, SELFPAY ==
--- NOTE | 2021-12-27 07:45 | RT.EKG_ITS ---
APPROVED REPORT Exam: Resting ECG Reason for Exam: cardiomyopthy Patient Location: O HR:68 bpm ECG Measurements Heart Rate 68 AXIS WV 152 P 53 QRSd 160 QRS -12 QT 444 T 130 QTc 473 Conclusion Sinus rhythm...normal P axis, V-rate 50- 99 Left bundle branch block...QRSd>120, broad/notched R Baseline wander in lead(s) V1,V2,V3,V4,V5,V6
== END 2021-12-27 07:52 | disposition home or self-care (01) ==
LOC: DI.CARD 07:52
PROVIDERS: PCP Internal Medicine; Visit Provider Internal Medicine Cardiovascular Disease
DX: I34.0 Nonrheumatic mitral (valve) insufficiency (principal); I42.8 Other cardiomyopathies; R07.9 Chest pain, unspecified; R94.31 Abnormal electrocardiogram [ECG] [EKG]; I44.7 Left bundle-branch block, unspecified
CPT/HCPCS: 93010

== ENCOUNTER → 2021-12-27 10:54 | Outpatient (BNVA) | payer MEDICARE, SELFPAY | PROVIDERS: PCP Internal Medicine; Referring Provider Internal Medicine; Visit Provider Internal Medicine Cardiovascular Disease | DX: I42.8 Other cardiomyopathies (principal); I34.0 Nonrheumatic mitral (valve) insufficiency; I10 Essential (primary) hypertension | CPT/HCPCS: 93005; 99213 ==

== ENCOUNTER → 2022-04-03 08:28 | Outpatient (BNVA) | payer MEDICARE, SELFPAY | PROVIDERS: PCP Internal Medicine; Referring Provider Internal Medicine | DX: M17.12 Unilateral primary osteoarthritis, left knee (principal) | CPT/HCPCS: 20610; J1040 ==

== ENCOUNTER 2022-06-20 16:14 | Outpatient (REF) | payer MEDICARE, SELFPAY ==
[2022-06-20 20:49] LABS: Anion Gap 7.7 mmol/L (3-11); BUN 32 mg/dL (7-18); CO2 28.3 mmol/L (21.0-32.0); CREATININE 0.9 mg/dL (0.55-1.02); Calcium 9.7 mg/dL (8.5-10.1); Chloride 106 mmol/L (98-107); Estimated GFR 63.04 (mL/min/1.73m2); FREE T4 0.79 ng/dL (0.76-1.46); Glucose 106 mg/dL (74-106); Potassium 4.1 mmol/L (3.5-5.1); Sodium 142 mmol/L (136-145); TSH 5.08 uIU/mL (0.36-3.74)
== END 2022-06-20 16:15 | disposition home or self-care (01) ==
LOC: NCHCN 16:14
PROVIDERS: PCP Internal Medicine; Visit Provider Internal Medicine
DX: E03.9 Hypothyroidism, unspecified (principal); I50.20 Unspecified systolic (congestive) heart failure
CPT/HCPCS: 80048; 84439; 84443

== ENCOUNTER → 2022-06-30 07:58 | Outpatient (BNVA) | payer MEDICARE, SELFPAY | PROVIDERS: PCP Internal Medicine; Referring Provider Internal Medicine; Visit Provider Physician Assistant | DX: M17.12 Unilateral primary osteoarthritis, left knee (principal) | CPT/HCPCS: 20610; J1040 ==

== ENCOUNTER 2022-09-21 02:12 | Outpatient (CLI) | payer MEDICARE, SELFPAY ==
--- NOTE | 2022-09-21 | DI.RAD_ITS ---
Exam(s) XR HIP RT COMPLETE AP PELVIS EXAM: XR HIP RT COMPLETE AP PELVIS CLINICAL HISTORY: OA RT HIP, M16.11. TECHNIQUE: 2D digital imaging was performed. COMPARISON: No exams were available for comparison FINDINGS: Two views No evidence of pelvic nor hip fracture. However, there is advanced osteoarthritic degenerative spivey e in the right hip with sron-ln-alck narrowing of the joint space. Also degenerative subarticular cy sts in the acetabulum. Opposite-left hip appears unremarkable. SI joints unremarkable. Degenerativ e disc disease noted no osseous lesions. IMPRESSION: Advanced osteoarthritic degenerative changes in the right hip. DATA REPOSITORY: RADIATION DOSE DELIVERED:
== END 2022-09-21 02:32 ==
LOC: DI 02:12
PROVIDERS: PCP Internal Medicine; Visit Provider Internal Medicine
DX: M25.551 Pain in right hip (principal); M16.11 Unilateral primary osteoarthritis, right hip
CPT/HCPCS: 73502

== ENCOUNTER → 2022-10-16 07:56 | Outpatient (BNVA) | payer MEDICARE, SELFPAY | PROVIDERS: PCP Internal Medicine; Referring Provider Internal Medicine; Visit Provider Student in an Organized Health Care Education/Training Program | DX: M17.12 Unilateral primary osteoarthritis, left knee (principal) | CPT/HCPCS: 20610; J1040 ==

== ENCOUNTER → 2022-10-26 10:30 | Outpatient (BNVA) | payer MEDICARE, SELFPAY | PROVIDERS: PCP Internal Medicine; Referring Provider Internal Medicine | DX: M16.11 Unilateral primary osteoarthritis, right hip (principal) | CPT/HCPCS: 99213 ==

== ENCOUNTER → 2022-11-27 03:10 | Outpatient (CLI) | payer MEDICARE, SELFPAY ==
--- NOTE | 2022-11-27 14:15 | DI.US_ITS ---
APPROVED REPORT EXAM: Comprehensive 2D, Doppler, and color-flow Echocardiogram Patient Location: Out-Patient Disability Rater: Trina Morris RDCS (AE) Indications: Check LV function, nonischemic cardiomyopathy Other Information Study Quality: Adequate Conclusion Normal left ventricular wall thickness and chamber size. Ejection fraction is 50 to 55%. Septal mot ion suggesting interventricular conduction delay Normal right ventricular size and systolic function Both atria are normal in size Aortic valve is mildly sclerotic and trileaflet without stenosis or regurgitation Normal mitral valve with moderate regurgitation Estimated right ventricular systolic pressure is 30 mmHg Wall motion Left Ventricle The left ventricle is normal size. Left ventricular systolic function is borderline There is normal left ventricular wall thickness. Septal motion suggesting IVCD There is no ventricular septal defect visualized. LVEF is 50-55%. Right Ventricle The right ventricle is normal size. The right ventricular systolic function is normal. Atria The left atrium size is normal. The right atrium size is normal. The interatrial septum is intact wit h no evidence for an atrial septal defect. Aortic Valve The aortic valve is mildly sclerotic Aortic valve is trileaflet. There is no aortic valvular stenosis . No aortic regurgitation is present. Mitral Valve The mitral valve is normal in structure. No evidence of mitral valve stenosis. Moderate mitral regurg itation. Tricuspid Valve The tricuspid valve is normal in structure. There is no tricuspid valve stenosis. Trace tricuspid reg urgitation. The RVSP is 30.4 mmHg. Pulmonic Valve The pulmonary valve is normal in structure. There is no pulmonic valvular stenosis. Trivial pulmonic regurgitation. Great Vessels The aortic root is normal in size. Ascending aorta is not well visualized. Aortic arch is not well vi sualized. IVC is normal in size and collapses >50% with inspiration. Pericardium Trace pericardial effusion. 2D Dimensions IVSD d PLAX 0.99 cm F: 0.6-1.0 Ao Root d 3.07 cm F: 2.7 - 3.3 LVPW d PLAX 1.01 cm F: 0.6 - 1.0 LVID d PLAX 5.18 cm F: 3.8 - 5.2 LVDs 3.94 cm F: 2.2 - 3.5 LV EF Teichholz 47.4 % FS 23.96 % LV EDV (Teich) 128.4 mL LV ESV (Teich) 67.5 mL M-Mode TAPSE 2.43 cm (M/F) >1.7 Auto EF LV EDV A4C 150.4 mL LV EDV A2C 99.0 mL LV EDV BP 124.4 mL LV ESV A4C 76.2 mL LV ESV A2C 50.8 mL LV ESV BP 63.0 mL LVEF(%) A4C 49.3 % LVEF(%) A2C 48.7 % LVEF(%) BP 49.3 % LV SV A4C 74.2 ml LV SV A2C 48.3 ml LV SV BP 61.4 ml LV CO A4C 5.6 L/min LV CO A2C 3.5 L/min LV CO BP 4.6 L/min HR A4C 75.60 BPM HR A2C 72.88 BPM LV EDV Index (BP) LA Volume LA Length A4C 5.5 cm LA Length A2C 5.6 cm LA Area A4C s 22.38 cm2 LA Area A2C s 19.58 cm2 LA Vol A4C A-L 76.90 mL LA Vol A2C A-L 57.70 mL LA Vol Biplane A-L 67.3 mL LA Vol/BSA A4C A-L LA Vol/BSA A2C A-L LA Vol/BSA BP A-L 37.0 mL/m2 LA Vol A4C MOD 72.5 mL LA Vol A2C MOD 52.6 mL LA Vol BP MOD 62.2 mL RA Volume RA Area A4C 16.2 cm2 RA ESV A4C (A-L) 46.1mL RA Vol/BSA A4C A-L RA Length A4C 4.8 cm RA ESV A4C (MOD) 42.9mL LV Diastology MV E' medial 0.051 (>0.07 m/s) MV E Vmax 0.67 (0.4-1.3 m/s) MV E/E' MED 13.11 (<14) MV A Vmax 1.10 (0.4-1.3 m/s) MV E' lateral 0.067 (>0.1 m/s) E/A Ratio 0.6 MV E/E' LAT 9.96 (<14) MV E' Average 0.059 m/s MV E/E'(average) 11.32 Aortic Valve AoV Vmax 1.72 m/s LVOT Vmax 1.25 m/s AoV Peak Grad 11.8 mmHg LVOT Peak Grad 6.3 mmHg AoV Area (Vmax) 2.06 cm2 LVOT VTI 0.233 m AoV VTI 0.325 m LVOT Mean Grad 3.7 mmHg AoV Mean Fran. 1.19 m/s LVOT SV 65.67 mL AoV Mean Grad 6.5 mmHg LVOT Diam s 1.85 cm AoV Area (VTI) 2.02 cm2 Velocity Ratio 0.73 Mitral Valve MV Vmax TIPS 1.00 m/s MV Mean Grad 1.6 (<2mmHg) MV VTI 0.301 m Tricuspid Valve RA Pressure 3.00 mmHg TR Vmax 2.62 m/s TV S' 0.14 m/s TR Peak Grad 27.3 mmHg RVSP (TR) 30.4 mmHg
== END ==
PROVIDERS: PCP Internal Medicine; Visit Provider Internal Medicine Cardiovascular Disease
DX: I42.8 Other cardiomyopathies (principal)
CPT/HCPCS: 93306

== ENCOUNTER 2022-12-14 07:49 | Outpatient (CLI) | payer MEDICARE, SELFPAY ==
--- NOTE | 2022-12-14 07:45 | RT.EKG_ITS ---
APPROVED REPORT Exam: Resting ECG Reason for Exam: MR HTN Patient Location: O HR:80 bpm ECG Measurements Heart Rate 80 AXIS VA 156 P 56 QRSd 149 QRS -23 QT 424 T 121 QTc 490 Conclusion Sinus rhythm...normal P axis, V-rate 50- 99 Probable left atrial enlargement...P >50mS, <-0.10mV V1 Left bundle branch block...QRSd>120, broad/notched R Baseline wander in lead(s) I,V2
== END 2022-12-14 07:50 | disposition home or self-care (01) ==
LOC: DI.CARD 07:50
PROVIDERS: PCP Internal Medicine; Visit Provider Internal Medicine Cardiovascular Disease
DX: I10 Essential (primary) hypertension (principal); I34.0 Nonrheumatic mitral (valve) insufficiency
CPT/HCPCS: 93010

== ENCOUNTER → 2022-12-14 10:18 | Outpatient (BNVA) | payer MEDICARE, SELFPAY | PROVIDERS: PCP Internal Medicine; Visit Provider Internal Medicine Cardiovascular Disease | DX: M16.11 Unilateral primary osteoarthritis, right hip (principal); I11.0 Hypertensive heart disease with heart failure; I50.9 Heart failure, unspecified; I42.9 Cardiomyopathy, unspecified; R07.9 Chest pain, unspecified | CPT/HCPCS: 93005; 99214 ==

== ENCOUNTER 2022-12-25 04:39 | Outpatient (CLI) | payer MEDICARE, SELFPAY ==
[2022-12-25 10:51] LABS: HCT 36.7 % (36.0-46.0); HGB 12.1 g/dL (11.2-15.7); MCV 94 fL (80-95); MPV 9.3 fL (8.0-11.0); Platelet Count 329 10^3/uL (130-400); WBC 8.21 10^3/uL (4.4-10.8)
[2022-12-25 11:29] LABS: BUN 28 mg/dL (7-18); Chloride 104 mmol/L (98-107); Estimated GFR 55.21 (mL/min/1.73m2); Glucose 111 mg/dL (74-106); Potassium 4.1 mmol/L (3.5-5.1); Sodium 139 mmol/L (136-145)
== END 2022-12-25 04:40 | disposition home or self-care (01) ==
LOC: LBO 04:39
PROVIDERS: PCP Internal Medicine; Visit Provider Student in an Organized Health Care Education/Training Program
DX: M16.11 Unilateral primary osteoarthritis, right hip (principal); Z01.818 Encounter for other preprocedural examination
CPT/HCPCS: 36415; 80048; 85027

== ENCOUNTER 2022-12-25 12:59 | Outpatient (CLI) | payer MEDICARE, SELFPAY ==
--- NOTE | 2022-12-25 11:30 | DI.RAD_ITS ---
Exam(s) XR PELVIS AP EXAM: XR PELVIS AP CLINICAL HISTORY: PRE OP R SHARMIN. TECHNIQUE: 2D digital imaging was performed.One images were obtained. COMPARISON: CR XR HIP RT COMPLETE AP PELVIS from 09/21/2022 FINDINGS: BONES: No acute fracture is present. No bony destructive lesion is seen. JOINTS: No dislocation present. There are marked degenerative changes seen in the right hip with loss of the joint space, subchondral sclerosis and acetabular spurring. Mild joint space narrowing is se en in the left hip. SOFT TISSUE: Atherosclerosis is present. IMPRESSION: Marked osteoarthritis of the right hip. DATA REPOSITORY: RADIATION DOSE DELIVERED:
== END 2022-12-25 13:00 | disposition home or self-care (01) ==
LOC: DIORS 13:00
PROVIDERS: PCP Internal Medicine; Visit Provider Physician Assistant
DX: M16.11 Unilateral primary osteoarthritis, right hip (principal); Z01.818 Encounter for other preprocedural examination
CPT/HCPCS: 36415; 80048; 85027; 72170

== ENCOUNTER 2023-01-02 05:57 | Day surgery (SDC) | payer MEDICARE, SELFPAY ==
[2023-01-02] VITALS (13 sets, daily range): BP systolic 93–180; BP diastolic 39–92; PULSE 67–93; RESP 15–20; TEMP 36.2–37; O2SAT 93–96; BMI 21.0
[2023-01-02] MEDS: Acetaminophen 500 MG TAB 1000 MG PO (06:53)
[2023-01-02] MEDS: Celecoxib 200 MG CAP 400 MG PO (06:53)
[2023-01-02] MEDS: Lactated Ringers 1,000 ML 80 ML IV (07:05)
--- NOTE | 2023-01-02 07:13 | W.ANESPRE ---
General Info Date of Service Date Performed: 01/02/23 Height: 5 ft 10 in Weight: 66.5 kg Body Mass Index (BMI): 21.0 Surgical Procedure: Operation Date: 01/02/23 07:50 Proposed Procedure Side Surgeon p Hip Total Hip Anterior, Corail Right Prasanth Hercules MD Actual Procedure Side Surgeon p Hip Total Hip Anterior, Corail Right Prasanth Hercules MD Meds Allergies and Home Medications Allergies Allergy/AdvReac Type Severity Reaction Status Date / Time colchicine Allergy Severe Verified 01/02/23 06:29 amoxicillin Allergy Intermediate Verified 01/02/23 06:29 Home Medication Medication Instructions Recorded albuterol sulfate 90 mcg/actuation 2 puff inhalation PRN PRN 04/15/14 aerosol inhaler (ProAir HFA) fluticasone propionate 110 2 puff inhalation DAILY 04/15/14 mcg/actuation HFA aerosol inhaler (Flovent HFA) lisinopril 5 mg tablet 5 mg PO DAILY #30 tabs 09/22/19 metoprolol succinate 25 mg 25 mg PO DAILY #30 tabs 09/22/19 tablet,extended release 24 hr aspirin 81 mg tablet,delayed 81 mg PO DAILY 10/06/19 release (Aspir-) calcium carbonate 600 mg-vitamin 200 cap PO DIRECTED 01/20/21 D3 5 mcg (200 unit) capsule furosemide 20 mg tablet 20 mg PO DAILY 01/20/21 ibuprofen 200 mg tablet 200 mg PO TID PRN 12/08/21 potassium chloride 10 mEq 20 meq PO DAILY 12/27/21 capsule,extended release tramadol 50 mg tablet 50 mg PO Q8H PRN pain #21 tabs 12/13/22 levothyroxine 50 mcg tablet 50 mcg PO DAILY 12/14/22 Current Visit Medications: Current Medications Generic Name Dose Route Start Last Admin Trade Name Freq PRN Reason Stop Dose Admin Acetaminophen 1,000 mg 01/02/23 06:00 01/02/23 06:53 Acetaminophen 500 Mg Tab PO 02/01/23 05:59 1,000 mg PREOP PETER Administration Celecoxib 400 mg 01/02/23 06:00 01/02/23 06:53 Celecoxib 200 Mg Cap PO 02/01/23 05:59 400 mg PREOP PETER Administration Tranexamic Acid 1,000 mg/ 60 mls @ 360 mls/hr 01/02/23 06:00 Sodium Chloride IV 02/01/23 05:59 PREOP PETER Ringer's Solution 1,000 mls @ 80 mls/hr 01/02/23 06:00 01/02/23 07:05 IV 01/31/23 23:59 80 mls/hr INFUSION PETER Administration Cefazolin Sodium/Dextrose 2 gm in 50 mls @ 100 mls/hr 01/02/23 06:00 Ancef Duplex IVPB 01/31/23 23:59 PREOP PETER IV Miscellaneous Supplies 1 each 01/02/23 06:00 Iv Access IV 01/31/23 23:59 DIRECTED PETER Sodium Chloride 0 ml 01/02/23 06:00 Normal Saline Flush 10 Ml Syr IV 01/31/23 23:59 PRN PRN Sodium Chloride 0 ml 01/02/23 06:00 Normal Saline 10 Ml Vial IJ 01/31/23 23:59 DIRECTED PRN Sterile Water 0 ml 01/02/23 06:00 Water,Injection,Sterile 10 Ml Vial IJ 01/31/23 23:59 DIRECTED PRN PFSH Active Problems Active Problems: Problem Status Onset Code Osteoarthritis of right hip M16.11 Primary osteoarthritis of left knee M17.12 Nonischemic cardiomyopathy I42.8 Chest pain R07.9 Mitral regurgitation I34.0 Medication management Z79.899 Generalized weakness R53.1 Hypothyroid E03.9 HTN (hypertension) I10 Asthma J45.909 CHF (congestive heart failure) I50.9 Surgical History Surgical History Right wrist fracture Torticollis H/O arthroscopy of knee Denies Tobacco Smoking/Tobacco Use Status: Never Alcohol Alcohol Intake: current Alcohol intake frequency: 0-2 drinks per day Alcohol type: wine Substance Use Substance use: Never Substance use type: does not use Vital Signs and Lab Results Vital Signs Most Recent Vital Signs in EMR: Most Recent Vital Signs Temp Pulse Resp BP Pulse Ox 37.0 C 93 H 18 180/92 H 96 01/02/23 06:23 01/02/23 06:23 01/02/23 06:23 01/02/23 06:23 01/02/23 06:23 Lab Results Blood Type / Crossmatch: No Data to Display Complete Blood Count: White Blood Count 8.21 10^3/uL (4.4-10.8) 12/25/22 10:30 Red Blood Count 3.90 10^6/uL (3.93-5.22) L 12/25/22 10:30 Hemoglobin 12.1 g/dL (11.2-15.7) 12/25/22 10:30 Hematocrit 36.7 % (36.0-46.0) 12/25/22 10:30 Platelet Count 329 10^3/uL (130-400) 12/25/22 10:30 Complete Metabolic Panel: Sodium 139 mmol/L (136-145) 12/25/22 10:30 Potassium 4.1 mmol/L (3.5-5.1) 12/25/22 10:30 Chloride 104 mmol/L (98-107) 12/25/22 10:30 Carbon Dioxide 29.0 mmol/L (21.0-32.0) 12/25/22 10:30 BUN 28 mg/dL (7-18) H 12/25/22 10:30 Creatinine 1.0 mg/dL (0.55-1.02) 12/25/22 10:30 Est GFR (CKD-EPI 2020) 55.21 (mL/min/1.73m2) 12/25/22 10:30 Calcium 10.0 mg/dL (8.5-10.1) 12/25/22 10:30 Glucose 111 mg/dL (74-106) H 12/25/22 10:30 Liver Function Panel: No Data to Display Coagulation Panel: No Data to Display Cardiac Panel: No Data to Display Arterial Blood Gas: No Data to Display Venous Blood Gas: No Data to Display Pancreas Panel: No Data to Display Thyroid Panel: No Data to Display Infectious Disease: No Data to Display Blood Cultures: No Data to Display Toxicology Panel: No Data to Display Anesthesia Assessment and Plan Anesthesia History Personal History: No History of Anesthesia Complications Family History: No Family History of Anesthesia Complications Exercise Tolerance Exercise Tolerance: Metabolic Equivalents>4 Pertinent Negatives Pertinent Negatives: No Symptoms of GERD Cardiac & Pulmonary Exam Cardiac Exam: Normal S1/S2 Heart Sounds Pulmonary Exam: Clear Bilateral Breath Sounds Implantable Cardiac Device Does patient have a Pacemaker or an ICD?: No Airway Exam Known Difficult Airway: No Mallampati Class: 2 Mouth Opening: Normal (> 3cm) Thyromental Distance: Greater than 3 cm Neck Range of Motion: Full ROM Neck Circumference: Normal Teeth Condition: Normal Dentition ASA Classification ASA Score: ASA 2 Emergency Case?: No NPO Status NPO Status: NPO Clears >2 hours, Solids >8 hours Anesthesia Plan Resuscitation Status: Full Code Anesthesia Technique: Spinal Anesthesia Airway Planned: Natural Airway Monitors Used: Standard Monitors
[2023-01-02] MEDS: ceFAZolin 2 GM/50 ML BAG IVPB (07:39)
--- NOTE | 2023-01-02 07:50 | DI.RAD_ITS ---
Exam(s) XR HIP RT IN OR EXAM: XR HIP RT IN OR CLINICAL HISTORY: hip fracture. TECHNIQUE: 2D and realtime digital imaging was performed. COMPARISON: CR XR PELVIS AP from 12/25/2022 FINDINGS: A hard copy image shows placement of a right hip prosthesis. The alignment appears satisfactory. Please see procedure note for details. Fluoro time: 48seconds RADIATION DOSE DELIVERED: Ka,r=4.87 mGy
--- NOTE | 2023-01-02 08:53 | ROE_ITS ---
Date of service: 01/02/23 Time of Service: 07:40 Operative Note Operative Note DATE OF PROCEDURE: 01/02/23 PRE-OP DIAGNOSIS: Right Hip Osteoarthritis POST-OP DIAGNOSIS: same PROCEDURE: Right Anterior Total Hip Arthroplasty with Intraoperative Navigation SURGEON: Prasanth Hercules DISK RECORDIST: Candy Lees ANESTHESIA TYPE: Spinal Refer to Anesthesia Record ESTIMATED BLOOD LOSS: 150 PATHOLOGY: none sent TOURNIQUET TIME: 0 COMPLICATIONS: None Patient was transported to: PACU Patient's condition: stable Implants: 1. Depuy Golden Acetabular Component, 54mm 2. Depuy Acetabular Liner, [id number] 3. Depuy Corail High Offset Collared Femoral Stem, Size 14 4. Depuy Altrx Ceramic Femoral Head, Size 36+1.5mm Indications: I have seen Sera in clinic for symptoms of hip arthritis, confirmed with radiographic findings. She has exhausted nonoperative methods and was having significant limitations in daily function and desired better function and less pain. I discussed the technical details of a hip replacement. I explained the risks of the procedure to include, but not limited to, bleeding, infection, pain, stiffness, fracture, damage to nerves and vessels, damage to muscles and tendons, loosening, instability, leg length inequality, need for repeat procedure, blood clot and cardiopulmonary demise. Despite these risks, Sera elected to proceed. Findings: There was significant signs of arthritis throughout the hip. Procedure Description: Sera was greeted in the preoperative holding area where the correct side was identified and marked. The consent was reviewed with the patient and signed. The history and physical was updated. All questions were answered. She was taken back to the operating room. A spinal anesthestic was then administered. The feet were wrapped with cast padding and Coban and then placed into the boot liners and then into the boots. Care was taken to protect the skin and make sure the heels were fully down and the boots were stable. The patient was then positioned onto the HANA table. Both legs were held in a neutral position. SCDs were applied. The patient was then slid down onto a peroneal post. Prophylactic antibiotics in the form of Cefazolin were administered. 1g of Tranxemic Acid was given intravenously within 30 minutes of incision. The right leg was then prepped with Chloraprep and draped in a standard fashion. A second prep with Chloraprep was performed prior to placement of a shower-curtain type drape with Iodine impregnated skin protection. A timeout to confirm correct identity, side and site, procedure, allergies, anesthesia, and medical concerns was performed. An obliquely oriented incision was made starting lateral to the ASIS and running distal over the Tensor Fascia Emily (TFL) muscle belly toward the fibular head, approximately 10cm. The skin and soft tissue was dissected sharply, through Katheryn?s fascia, and to the fascia of the TFL. With the fascia and superior b order of the IT band identified, the fascia was incised with a new knife just above any perforators from the IT band. The TFL muscle belly was bluntly dissected away from the fascia and moved laterally. The fat between TFL and rectus was identified to ensure the dissection was not within the TFL. Blunt dissection created space between abductors and the capsule and retractor was placed over the lateral femoral neck. The fibers of the rectus femoris tendon were identified and these were freed from the anterior capsule. A second cobra retractor was placed around the medial femoral neck. The TFL was further retracted laterally to show the deep fascia. Careful dissection through this layer identified three main crossing vessels of the lateral femoral circumflex. These were cauterized in multiple locations and then cut without any noticeable bleeding. The TFL was further released bluntly from the deep fascia to expose anterior hip capsule and fat The Williams orthopaedic retractor was then placed beneath the TFL and against sartorius and medial soft tissues to protect and retract the soft tissues. A T-capsulotomy was then performed starting at the superior lateral acetabulum and moving distally to the intertrochanteric ridge. These capsular flaps were tagged with a No. 1 Ethibond and elevated from within. The capsular flaps were released to the shoulder of the lateral neck and to the lesser trochanter to give excellent visualization of the proximal femur. A neck osteotomy was performed using an oscillating saw based on preoperative templates. This cut started in the shoulder and of the lateral neck and exited medially. The saw was at all times directed medially to avoid injury to the greater trochanter. Gross traction was applied to the leg and the osteotomy opened. The femoral head was removed with a corkscrew, making sure to protect the TFL on its exit. Traction was released after head removal. This was measured on the back table to determine the starting reamer size. Portions of the rectus obscuring visualization were minimally elevated off the superior acetabulum. An anterior retractor was placed over the anterior wall between capsule and labrum and attached to the Gripper retraction system. The femur was rotated to 90 degrees and medial capsule was fully released until the lesser trochanter was palpable and visible; the femur was returned to 30 degrees. A posterior retractor was placed similarly between capsule and labrum. This provided excellent visualization. The contents of the cotyloid fossa were removed with electrocautery and the labrum was removed with a knife. There was a notable floor osteophyte. There was significant chondromalacia of the superior acetabulum. Acetabular reaming began with a 50mm reamer. This first reaming was directed anterior to posterior and medial to get down to the true floor. This was inspected and reamed until the true floor was reached. The anterior retractor was then released and entry and exit was provided by traction on the capsular flaps. I then reamed sequentially up to a 54mm reamer where good fit was obtained. The larger reamers were oriented based on anatomical reference of the anterior and lateral hirsch to ensure proper abduction and anteversion. Positioning and size was confirmed with the fluoroscopy. A 54mm Depuy Golden acetabular component was selected. The acetabulum was reamed around the periphery with the selected acetabular size to prevent a rim fit. The deep tissues were irrigated. The acetabular component was then impacted in a position of about 40-45 degrees of abduction and 15-20 degrees of anteversion, using the patient?s anatomy as the ultimate landmark. Fluoroscopy was used to confirm this. There was excellent weighing station operator of the acetabular component and the inserting handle was removed. A primary acetabular screw was placed into the ilium by drilling through one of the holes in the acetabular component. This was measured and an approrpriately sized screw was placed with excellent purchase. It was checked not to be proud. A second screw was also placed. However, on insertion the lip of the screw remained prominent over the edge of the acetabular component despite manipulation of the screw and its trajectory. Therefore, it was removed. The acetabular liner, Depuy [id number] polyethylene liner, was inserted and lined up with the tines of the acetabular component. There was no soft tissue interposition. The liner was then impacted into position and confirmed to be well-seated. A portion of the nini-articular cocktail was then injected around the acetabulum into the capsule and periosteum. This cocktail consisted of 123mg of Ropivacaine, 0.25mg of Epinephrine, 0.04mg of Clonidine, and 15mg of Ketorolac, diluted to 50cc. The leg was rotated to 120 degrees. Any remaining medial capsule was released until the lesser trochanter was easily palpable. A retractor was placed medially. The lateral capsule was further released into the shoulder to allow access to the greater trochanter. A Dela Cruz retractor was placed over the greater trochanter which allowed the trochanter to flip in front of the capsule for excellent exposure. The leg was brought down into maximal extension and 20 degrees of adduction while ensuring there was no impingement on the acetabulum. Any remnant capsule within the trochanter was released. Piriformis and obturator externis were identified and protected. There was excellent access to the proximal femur. The lateral neck remnant was removed with a rongeur. A blunt canal probe was used to identify the canal and trajectory for later broaching. A box osteotome initiated the broach course. A small curved rasp and a curved curette were used to work laterally. Broaching then began with a size 8 Corail broach. This was inserted manually around the trochanter and into the canal before mallet blows. The broach was seated to a few millimeters below the cut level based on the neck cut and the preoperative template. Sequential broaching was continued with the [id number] pneumatic broaching device until a tight fit was obtained with good rotational control of the femur. A trial short neck was inserted along with a +5 trial head. The leg was brought out of extension and adduction and then reduced with traction and internal rotation. The leg was stable anteriorly in a position of 30 degrees of extension and 90 degrees of external rotation. Fluoroscopy was used to ensure there was no fracture and the stem was seated well. Leg lengths were checked with an AP pelvis and pelvic reference points. Mister Spex navigation system was used to confirm appropriate positioning and leg length and offset. This under-corrected offset and leg length, but would be improved with a high offset neck and +1.5 head. Once content with the desired offset and leg lengths, the leg was brought back into extension, external rotation and adduction. The periosteum and surrounding tissue was injected with remaining portion of the nini-articular cocktail. The proximal femur was irrigated as well as the deep tissues. The Depuy Corail High Offset collared stem, size 14, was then manually inserted into the proximal femur making sure to control rotation. It was then malleted into position with light blows, giving breaks to allow bone expansion and decrease risk of fracture. The selected Depuy Altrx Ceramic Head, size 36+1.5mm, was then placed onto the clean and dry trunnion and secured with impaction onto the tapered fit. The leg was brought back out of extension and adduction and reduced with traction and internal rotation. Stability was confirmed with no shuck at 90 degrees of external rotation and 30 degrees of extension. No impingement through range of motion arc. Final x-ray images were obtained with fluoroscopy to confirm adequate positioning and no intraoperative fracture. The deep tissues were thoroughly irrigated with Surgiphor, betadine solution. This was allowed to sit in the wound for 3 minutes before being thoroughly irrigated out with normal saline. The capsule was then reapproximated with the previously placed Ethibond sutures. The TFL fascia was finally closed with a No. 2 Stratafix, barbed suture. Deep tissues were then reapproximated with 0 Vicryl and a running 2-0 Vicryl. The skin was closed with a running 4-0 Monocryl in a subcuticular fashion. This was reinforced with skin glue. A Mepilex silver dressing was applied. At the end of the case, all counts were correct. Pat was transferred to the hospital bed without difficulty and suffering no apparent complication. She has a good prognosis. Physical therapy will start today and without restrictions, weight-bearing as tolerated. Aspirin 81mg BID will be used for DVT prophylaxis.
[2023-01-02] MEDS: fentaNYL 100 MCG/2 ML VIAL IVP ×3 (09:38→09:53)
--- NOTE | 2023-01-02 10:14 | W.PM.DS.N ---
Date of service: 01/02/23 Time of Service: 10:14 DS: Diagnosis Discharge Diagnosis (1) Osteoarthritis of right hip: Status: Chronic Discharge Plan Disposition Patient Disposition: Home Condition: Good Discharge Details Reason For Visit: Right hip DJD Attending Provider: Prasanth Hercules Primary Care Provider: Nghia Gomez [place] Meds and New Rx's Prescriptions: New acetaminophen 500 mg tablet 1,000 mg PO Q8H PRN Qty: 90 0RF Rx Instructions: Take two tablets up to every 8 hours as needed for pain aspirin 81 mg tablet,delayed release (DR/EC) 81 mg PO BID 30 Days Qty: 60 0RF celecoxib [Celebrex] 200 mg capsule 200 mg PO BID PRNQty: 60 0RF Rx Instructions: Take one tablet twice daily for pain and inflammation docusate sodium [Colace] 100 mg capsule 100 mg PO BID Qty: 30 0RF tramadol 50 mg tablet 50 mg PO Q6H PRN (Reason: severe postoperative pain) Qty: 12 0RF Rx Instructions: Take one tablet up to every 4 hours as needed for severe pain pantoprazole 40 mg tablet,delayed release (DR/EC) 40 mg PO DAILY Qty: 14 0RF dexamethasone 4 mg tablet 4 mg PO DAILY Qty: 2 0RF Rx Instructions: Take one tablet once daily for two days Continued potassium chloride 10 mEq capsule, extended release 20 meq PO DAILY furosemide 20 mg tablet 20 mg PO DAILY calcium carbonate-vitamin D3 600 mg calcium- 200 unit capsule 200 cap PO DIRECTED levothyroxine 50 mcg tablet 50 mcg PO DAILY Patient Comments: TK 1 T PO D albuterol sulfate [ProAir HFA] 200 PUFF HFA aerosol inhaler 2 puff Inhalation PRN PRN fluticasone propionate [Flovent HFA] 12 GM HFA aerosol inhaler 2 puff Inhalation DAILY lisinopril 5 mg Tablet 5 mg PO DAILY Qty: 30 1RF metoprolol succinate 25 mg Tablet Extended Release 24 Hr 25 mg PO DAILY Qty: 30 1RF Discontinued aspirin [Aspir-81] 81 mg tablet,delayed release (DR/EC) 81 mg PO DAILY ibuprofen 200 mg tablet 200 mg PO TID PRN tramadol 50 mg tablet 50 mg PO Q8H PRN (Reason: pain) Qty: 21 0RF Discharge Instructions Additional Instructions: Total Hip Discharge Instructions Activity: The most important activity is to walk. You should try to take short walks a few times a day. You have no restrictions on movement or positioning, but do not try to force what you do. You will find some stiffness and weakness with hip flexion (lifting your knee). Do not try to strengthen this too early, continue to practice walking and stairs and this will come. - Outpatient physical therapy can be helpful to help return you to a normal gait and improve your flexibility and strength. This can start around 2 weeks. For some patients, it?s not necessary. Usually this is determined at the time of discharge or at the first post-operative visit. - You should wear the ADRIÁN hose on both legs for 2 weeks. Dressing: Keep the surgical dressing in place for at least one week. After the first week it may be removed and replace with light gauze and tape or nothing. It may get wet after 3 days but avoid soaking the dressing. If it gets wet, just lightly pat dry. It is important to always keep some gauze between skin folds, especially when you are sitting. Spend some time with the wound exposed when you are lying flat as the incision does wrinkle onto itself. Medications: - You should take Tylenol and an anti-inflammatory Celebrex as your primary pain control medications. If the Celebrex is too expensive or not covered, please call the office for another alternative (Advil/Ibuprofen or Naproxen/Aleve). - You have been prescribed a stronger pain medication Tramadol for breakthrough pain, take as needed as prescribed. - You have also been prescribed a stomach acid reduction agent Pantoprozole to help reduce stomach acid and reflux. - You have also been prescribed Decadron to help with post-operative nausea and pain. You will take this for two days starting tomorrow. - You will be taking Aspirin 81mg twice a day for DVT prevention unless instructed otherwise. - If you have constipation you should take Colace (which has been prescribed) or Miralax (which is available [id number]). It takes most people 3-4 days to have a bowel movement. Follow-up: 2 weeks If you have any acute concerns or questions, please do not hesitate to contact the office at [phone]. You may contact Dr. Hercules with any questions after hours through the hospital at [phone] or on his cell phone at [phone]. Stand Alone Forms: Anesthesia Discharge InstRafa, Darleen Pat (DSU) Referrals: Prasanth Hercules MD [ [facility] STAFF PHYSICIAN] - 01/15/23 11:00 am Equipment/Supplies: Walker Activity:: Elevate Remove Dressings/Wound Care:: Do Not Remove Shower/Bathe:: Cover Diet:: As Tolerated Discharge Orders Discharge Orders: Discharge Order (Routine); Ordered 01/02/23 Ordered By: Candy Lees DS: Summary Time Spent with Patient providing and/or coordinating discharge services: Less than 30 minutes Status at Discharge Functional status at discharge: uses cane/walker Overall status at discharge: patient is progressing back to baseline Mental Status: mental status grossly normal Speech and Movement: speech and movement normal Mood: congruent mood Affect: normal affect Exam Psych Mental Status: mental status grossly normal Speech and Movement: speech and movement normal Mood: congruent mood Affect: normal affect DS: Data Vitals/I&O Vitals and I&O: Vital Signs Temperature 98.6 F 01/02/23 06:23 Pulse 93 H 01/02/23 06:23 Pulse Rhythm Regular 01/02/23 06:23 Respiratory Rate 18 01/02/23 06:23 Respiratory Depth Deep 01/02/23 06:23 Blood Pressure 180/92 H 01/02/23 06:23 Pulse Oximetry 96 01/02/23 06:23 Oxygen Delivery Method Room Air 01/02/23 06:23 Oxygen Flow Rate 0 01/02/23 06:23 Pain Level 4 01/02/23 06:23 Intake & Output 01/01/23 01/01/23 01/02/23 11:59 23:59 11:59 Weight 150 lb 0.005 oz 146 lb 9.718 oz PFSH All Active Problems Osteoarthritis of right hip (Chronic) Primary osteoarthritis of left knee (Acute) Steroid injection: 10/16/22; 06/30/22; 04/03/22; 12/08/2021 Nonischemic cardiomyopathy (Acute) Chest pain (Acute) Mitral regurgitation (Chronic) Medication management (Acute) Generalized weakness (Acute) Hypothyroid (Chronic) HTN (hypertension) (Chronic) Asthma (Chronic) CHF (congestive heart failure) (Chronic) Surgical History Right wrist fracture Torticollis H/O arthroscopy of knee Denies Social History Smoking/Tobacco Use Status: Never Smoking risk assessment performed?: Yes Alcohol Intake: current Alcohol Intake frequency: 0-2 drinks per day Alcohol type: wine Drug use: Never Substance use type: does not use Housing: house Do you feel safe at home: Yes Do you feel safe in your relationship?: Yes Time Spent with Patient Time Spent with Patient: <45 minutes Time was spent: ordering medications,tests, procedures, indepentently interpreting results and counseling the patient
[2023-01-02] MEDS: traMADol 50 MG TAB PO (10:38)
--- NOTE | 2023-01-02 11:36 | IN_ITS ---
PT Notes Visit Reasons: Right hip DJD Physical Therapy Day Surgery Initial Evaluation Date: 01/02/2023 Referring Doctor: JANEEN Whitaker PT Orders: PT CONSULT: S/P Ortho Surgery Precautions: WBAT on the R LE with AD. Patient Profile/Admitting Diagnosis: Sera is an 87-year-old female with primary unilateral osteoarthritis of the right hip and status post right anterior total hip arthroplasty on postoperative day 0. PMHX: Surgical History (Updated 12/25/22 @ 12:02 by Candy Lees) Right wrist fracture Torticollis H/O arthroscopy of knee Denies Social History/Home Situation: Lives with in a private home with 1 step to enter without rails. Modified independent without an AD although level of difficulty has been increasing due to worsening athritic pain. Equipment Owned/DME: [facility] Subjective: Reports burning sensation in the R hip and thigh that subsided with walking. Bu rning pain report of 7-8/10 at start. Nurse Marquita has given patient Tramadol half an hour before PT visit that allowed completion of mobility performance. Objective: General Observation: Supine in bed. Mepilex Ag over surgical incision. Cold pack to R hip. TEDS to B legs. Dante present in room. Mental Status: Alert and oriented x 4 Pain: 7-8/10 burning pain in R hip and thigh that subsided with mobility performance ROM: Right Lower Extremity: Hip flexion WFL. Hip abduction WFL. Knee flexion WFL. Ankle dorsiflexion WFL. Ankle plantarflexion WFL. Left Lower Extremity: Hip flexion WFL. Hip abduction WFL. Knee flexion WFL. Ankle dorsiflexion WFL. Ankle plantarflexion WFL. Strength: Right Lower Extremity: Hip flexors 4-/5. Hip abductors 4-/5. Knee flexors 5/5. Knee extensors 4-/5. Ankle dorsiflexors 5/5. Ankle plantarflexors 5/5. Left Lower Extremity:Hip flexors 5/5. Hip abductors 5/5. Knee flexors 5/5. Knee extensors 5/5. Ankle dorsiflexors 5/5. Ankle plantarflexors 5/5. Sensation: Intact as to pain and light pressure in B LE. Bed Mobility/Transfers: Supine to sit stand by assist, cues provided for hand assist and slow movement to minimize pain increase Sit to stand contact guard assist, cues provided for movement sequence, hand placement, and safe movement Stand to sit stand by assist, cues provided for movement sequence, hand placement, and safe movement Bed to chair Stand by assist, cues provided for movement sequence, hand placement, and safe movement Gait: Facilitated safe and correct performance of level surface ambulation covering a distance of 150 feet using front wheeled walker with step through heel?toe gait pattern requiring only standby assist. Report of burning pain on the right hip and anterior thigh diminished towards the end of activity. No loss of balance. No SOB. Stairs: Guided patient with safe negotiation of 2 x 6 inch steps and 3 x 4 inch steps while holding onto single-point cane with 1 hand and with the other hand supported by a rail requiring only standby assist with minimal verbal cueing provided for safe gait pattern and correct use of AD. Balance: Static Sitting: Normal Dynamic Sitting: Good Static Standing: Fair Dynamic Standing: Fair Special Tests: Mobility Limitations Standardized Measure [facility]-P[facility] 6 clicks Basic Mobility Inpatient Short Form: Raw Score: 22 CMS Score: 21% deficit Informed Consent/Education: Patient instructed in purpose of PT consult. Packet containing SHARMIN exercise protocol has been given to patient. Education and training on initial set of exercises that can be done at home have been completed with patient. Trained patient with correct performance of exercises below to maximize motor control, joint flexibility, soft tissue extensibility of the R hip musculature to facilitate return to independent functional mobility performance. Access Code: [email or web address] URL: [email or web address] Date: 01/02/2023 Prepared by: Colette Perez Exercises - Gluteal Sets - 1 x daily - 7 x weekly - 1 sets - 10 reps - 5 hold - Supine Heel Slide - 1 x daily - 7 x weekly - 1 sets - 10 reps - 5 hold - Supine Ankle Pumps - 1 x daily - 7 x weekly - 1 sets - 10 reps - 5 hold - Seated March - 1 x daily - 7 x weekly - 1 sets - 10 reps - 5 hold - Seated Long Arc Quad - 1 x daily - 7 x weekly - 1 sets - 10 reps - 5 hold Assessment: Patient requires the use of a front-wheeled walker for all mobility ADL performance to maximize independence and reduce fall risk. Patient presents with clinical signs and symptoms consistent with current/admitting diagnoses that have resulted to mobility limitations, gait instability, generalized weakness, and impairment of motor control as demonstrated by the following impairment level findings: 1. Decreased strength toR hip major muscle groups 2. Impaired standing balance Impairments are contributing to the following functional limitations: 1. Inability to safely ambulate without assistive device 2. Increase completion time for mobility ADL performance 3. Increased fall risk Patient is assessed as a 62243 moderate complexity based on the following: History: 87-year-old female with impairment level findings, functional limitations, and past medical history as indicated above Examination: Demonstrable impairment in strength, balance, and mobility level with underlying impairments and functional limitations as documented above Presentation: Evolving Decision Makin moderate complexity Goals: N/A. PT evaluation and 1-2 treatment sessions only for functional mobility training using recommended AD and for HEP instruction. Plan of Care/Treatment Plan: N/A. PT evaluation and 1-2 treatment session only for functional mobility training using recommended AD and for HEP instruction. DISCHARGE RECOMMENDATIONS: Home when medically cleared by orthopedic surgeon. Recommend outpatient PT services in order to optimize functional mobility outcomes and facilitate return to independent community ambulation without an assistive device. TREATMENT CODE/TIME: 70430 x 20 minutes, 77739 x 14 minutes beginning at 11:36 AM. Thank you for the opportunity to participate in the care of this patient. Colette Perez PT, DPT, CLT [facility] [place], [place]
--- NOTE | 2023-01-02 13:20 | W.ANESPOSTOP ---
Postoperative Evaluation Date, Time and Location Date Performed: 01/02/23 Time Performed: 12:54 Patient Location: Day Surgery Unit Vital Signs Most Recent Imported Vital Signs: Most Recent Vital Signs Temp Pulse Resp BP Pulse Ox 36.3 C L 74 16 130/53 L 96 01/02/23 10:45 01/02/23 12:00 01/02/23 11:24 01/02/23 12:00 01/02/23 12:00 Pain Score Most Recent Pain Score: Most Recent Pain Score Pain Level 8 01/02/23 11:24 Assessment Mental Status: Awake (Alert & Oriented to Patient Baseline) Airway and Respiratory Function: Patent airway with normal (patient baseline) respiratory exam Cardiovascular Function: Hemodynamically Stable Hydration Status: Adequately Hydrated Nausea & Vomiting: No Nausea or Vomiting Pain: Pain is tolerable per patient Peripheral Nerve Block: Patient did not receive a nerve block
== END 2023-01-02 12:57 | disposition home or self-care (01) ==
PROVIDERS: PCP Internal Medicine; Visit Provider Student in an Organized Health Care Education/Training Program
PROC: (CPT 27130; principal; 2023-01-02 07:30)
DX: M16.11 Unilateral primary osteoarthritis, right hip (principal); I42.8 Other cardiomyopathies; E03.9 Hypothyroidism, unspecified; I11.0 Hypertensive heart disease with heart failure; I50.9 Heart failure, unspecified
CPT/HCPCS: 20985; 27130; C1776; 97162; 97530; 73501; J0690; J1100; J2001; J2371; J2405; J2704; J3010

== ENCOUNTER 2023-01-15 14:27 | Outpatient (CLI) | payer MEDICARE, SELFPAY ==
--- NOTE | 2023-01-15 08:45 | DI.RAD_ITS ---
Exam(s) XR HIP RT COMPLETE AP PELVIS EXAM: XR HIP RT COMPLETE AP PELVIS CLINICAL HISTORY: 1st post op s/p R SHARMIN. TECHNIQUE: 2D digital imaging was performed. Three images were obtained. AP, lateral and oblique vi ews were obtained. COMPARISON: CR XR HIP RT COMPLETE AP PELVIS from 09/21/2022 XA XR HIP RT IN OR from 01/02/2023 FINDINGS: BONES: Of a right total hip replacement no fracture or dislocation. JOINTS: The orthopedic hardware is in good position. No evidence of hardware loosening. Degenerativ e changes are noted in the left hip. SOFT TISSUE: Atherosclerosis. IMPRESSION: Stable postoperative changes. DATA REPOSITORY: RADIATION DOSE DELIVERED:
== END 2023-01-15 14:28 | disposition home or self-care (01) ==
LOC: DIORS 14:28
PROVIDERS: PCP Internal Medicine; Visit Provider Student in an Organized Health Care Education/Training Program
DX: Z96.641 Presence of right artificial hip joint (principal); Z47.1 Aftercare following joint replacement surgery; M17.12 Unilateral primary osteoarthritis, left knee
CPT/HCPCS: 20610; 73502; J1040

== ENCOUNTER → 2023-02-12 10:08 | Outpatient (BNVA) | payer MEDICARE, SELFPAY | PROVIDERS: PCP Family Medicine; Visit Provider Student in an Organized Health Care Education/Training Program | DX: Z47.1 Aftercare following joint replacement surgery (principal); Z96.641 Presence of right artificial hip joint; M17.12 Unilateral primary osteoarthritis, left knee ==

== ENCOUNTER → 2023-04-19 09:58 | Outpatient (BNVA) | payer MEDICARE, SELFPAY | PROVIDERS: PCP Family Medicine; Referring Provider Family Medicine | DX: M17.12 Unilateral primary osteoarthritis, left knee (principal) | CPT/HCPCS: 20610; J1040 ==

== ENCOUNTER 2023-07-17 21:51 | Emergency (ER) | payer MEDICARE, SELFPAY ==
[2023-07-17 21:56] VITALS: BP 159/92; PULSE 103; RESP 16; TEMP 36.7; O2SAT 98
[2023-07-17 22:36] VITALS: RESP 14
[2023-07-17 22:40] LABS: Abs Immature Grans 0.03 10^3/uL (0.0-0.06); Absolute Basophil Count 0.04 10^3/uL (0.0-0.2); Absolute Eosinophil Count 0.38 10^3/uL (0.0-0.7); Absolute Lymphocyte Count 2.85 10^3/uL (1.2-3.4); Basophils % 0.5 %; Eosinophils % 4.5 %; HCT 37.8 % (36.0-46.0); HGB 12.1 g/dL (11.2-15.7); Immature Grans % 0.4 %; Lymphocytes % 33.5 %; MCH 30.6 pg (27.0-33.0); MCV 96 fL (80-95); MPV 9.2 fL (8.0-11.0); Monocytes % 7.1 %; Platelet Count 288 10^3/uL (130-400); RBC 3.96 10^6/uL (3.93-5.22); RDW 14.6 % (11.7-14.6); RDW-SD 51.9 fL
[2023-07-17 22:54] LABS: ALT 21 U/L (14-59); AST 18 U/L (15-37); Albumin 3.7 g/dL (3.4-5.0); Alkaline Phosphatase 107 U/L (46-116); Anion Gap 11.4 mmol/L (3-11); BUN 31 mg/dL (7-18); Bilirubin, Total 0.2 mg/dL (0.2-1.0); CO2 25.6 mmol/L (21.0-32.0); CREATININE 1.2 mg/dL (0.55-1.02); Calcium 9.7 mg/dL (8.5-10.1); Chloride 103 mmol/L (98-107); ETHANOL BLOOD 6.6 mg/dL (<10); Estimated GFR 44.36 (mL/min/1.73m2); Glucose 109 mg/dL (74-106); Potassium 3.7 mmol/L (3.5-5.1); Sodium 140 mmol/L (136-145); Total Protein 7.2 g/dL (6.4-8.2)
--- NOTE | 2023-07-17 23:00 | DI.CT_ITS ---
Exam(s) CT BRAIN CTA EXAM: CT BRAIN CTA CLINICAL HISTORY: confusion. TECHNIQUE: Imaging Protocol: Axial CT angiography was performed with multi-slice acquisition and mu lti-planar and/or 3D reconstructions. CONTRAST MATERIAL: Intravenous: Omnipaque 350 Contrast volume:structured data in ml Intravenous: Omnipaque 350 Contrast volume:85 mL COMPARISON: No exams were available for comparison FINDINGS: CT Head W/O and with IV contrast: Ventricles and Extra axial spaces: Normal in size and morphology for the patient's age. Hemorrhage: None. Cerebral parenchyma: Normal mild atrophy consistent with the patient's age. Minimal white matter nii nges of small vessel disease. No abnormal areas of enhancement. Midline shift: None. Brainstem/Cerebellum: Normal. Calvarium: Normal. Visualized Paranasal sinuses/Mastoids: Mild mucosal thickening left maxillary sinus. Soft Tissues: Unremarkable. CTA Brain W: Internal Carotid Arteries: Petrous: Normal. Cavernous: Normal. Cerebral: Normal. Middle Cerebral Arteries: Right: No aneurysm, occlusion or significant stenosis. Left: No aneurysm, occlusion or significant stenosis. Anterior Cerebral Arteries: Right: No aneurysm, occlusion or significant stenosis. Left: No aneurysm, occlusion or significant stenosis. Posterior cerebral Arteries: Right: No aneurysm, occlusion or significant stenosis. Left: No aneurysm, occlusion or significant stenosis. Vertebral Arteries: Right: No aneurysm, occlusion or significant stenosis. Left: No aneurysm, occlusion or significant stenosis. Basilar Artery: No aneurysm, occlusion or significant stenosis. IMPRESSION: 1. Normal CTA examination of the [place] of [place]. 2. Unremarkable CT Head. RADIATION DOSE DELIVERED: 1,866.94mGy.cm Total DLP 1,866.94mGy.cm Total DLP 1,866.94mGy.cm Total DLP DATA REPOSITORY: All CT scans at this facility are submitted to the National Radiology Data Registry (NRDR) Dose Index Registry (DIR) with the [employer] ([employer]). RADIATION OPTIMIZATION: All CT scans at this facility use at least one of these dose optimization te chniques: automated exposure control; mA and/or kV adjustment per patient size (includes targeted exa ms where dose is matched to clinical indication); or iterative reconstruction.
--- NOTE | 2023-07-17 23:00 | RT.EKG_ITS ---
APPROVED REPORT Exam: Resting ECG Reason for Exam: altered mental status Patient Location: E HR:81 bpm ECG Measurements Heart Rate 81 AXIS TN 168 P 60 QRSd 156 QRS -24 QT 434 T 124 QTc 506 Conclusion Sinus rhythm...normal P axis, V-rate 60- 99 Ventricular premature complex...V complex w/ short R-R interval Left bundle branch block...QRSd>120, broad/notched R ST elevation secondary to IVCD...Multiple VCG criteria sgarbossa negative
--- NOTE | 2023-07-17 23:13 | W.ED.GENAD ---
Discharge Plan Disposition Patient Disposition: Home Condition: Good Discharge Details Clinical Impression: Urinary tract infection, Encephalopathy Primary Care Provider: Ruben Jarquin ED Provider: Malathi Luna Home Meds and New Rx's Prescriptions: New cephalexin 500 mg capsule 500 mg PO BID Qty: 20 0RF Continued potassium chloride 10 mEq capsule, extended release 20 meq PO DAILY furosemide 20 mg tablet 20 mg PO DAILY calcium carbonate-vitamin D3 600 mg calcium- 200 unit capsule 200 cap PO DIRECTED levothyroxine 50 mcg tablet 50 mcg PO DAILY Patient Comments: TK 1 T PO D albuterol sulfate [ProAir HFA] 200 PUFF HFA aerosol inhaler 2 puff Inhalation PRN PRN fluticasone propionate [Flovent HFA] 12 GM HFA aerosol inhaler 2 puff Inhalation DAILY lisinopril 5 mg Tablet 5 mg PO DAILY Qty: 30 1RF metoprolol succinate 25 mg Tablet Extended Release 24 Hr 25 mg PO DAILY Qty: 30 1RF acetaminophen 500 mg tablet 1,000 mg PO Q8H PRN Qty: 90 0RF Rx Instructions: Take two tablets up to every 8 hours as needed for pain Discharge Instructions Instructions: Urinary Tract Infection in Women (ED), Altered Mental Status (ED) Additional Instructions: Call your primary care doctor today to schedule an appointment for within 48 hours to followup on your visit here. Return to the emergency department for new or worsening symptoms including fever, confusion, or if you have any other concerns. Referrals: Ruben Jarquin MD [Primary Care Provider] - [facility] General Mode of arrival: ambulatory. Date/Time Provider Initiated Documentation: 07/17/23 22:10. Limitations to Documentation: no limitations. Information obtained by: patient. HPI Narrative: 87yo F with hx of asthma, HTN, hypothyroid, presenting for dry mouth and 'dizziness'. Symptoms started around 7pm after dinner. Did have 2 glasses of white wine with dinner, did not eat anything out of the ordinary for her. 'Dizziness' is characterized as 'just not feeling right'. Does not feel like she is going to pass out. Does not feel like the room is spinning. Feels 'like I'm not in the right spot' and like 'everything is 2 dimensional'. Has had some difficultly telling how much time has been passing since 7pm. Has never experienced anything like this before. No recent falls or injuries. No numbness, tingling, weakness, vision changes, double vision, tinnitus. Otherwise in her usual state of health with no fevers, chills, rash, headache, neck pain, nausea, vomiting, abdominal pain, dysuria, hematuria, LE edema, shortness of breath, or other concerns. Related Data Home Medications Medication Instructions Recorded Confirmed albuterol sulfate 90 mcg/actuation 2 puff inhalation PRN PRN 04/15/14 07/17/23 aerosol inhaler (ProAir HFA) fluticasone propionate 110 2 puff inhalation DAILY 04/15/14 07/17/23 mcg/actuation HFA aerosol inhaler (Flovent HFA) lisinopril 5 mg tablet 5 mg PO DAILY #30 tabs 09/22/19 07/17/23 metoprolol succinate 25 mg 25 mg PO DAILY #30 tabs 09/22/19 07/17/23 tablet,extended release 24 hr calcium carbonate 600 mg-vitamin 200 cap PO DIRECTED 01/20/21 07/17/23 D3 5 mcg (200 unit) capsule furosemide 20 mg tablet 20 mg PO DAILY 01/20/21 07/17/23 potassium chloride 10 mEq 20 meq PO DAILY 12/27/21 07/17/23 capsule,extended release levothyroxine 50 mcg tablet 50 mcg PO DAILY 12/14/22 07/17/23 acetaminophen 500 mg tablet 1,000 mg (2 x 500 mg) PO Q8H PRN 01/02/23 07/17/23 pain #90 tabs cephalexin 500 mg capsule 500 mg PO BID #20 caps 07/18/23 Previous Rx's Medication Instructions Recorded lisinopril 5 mg tablet 5 mg PO DAILY #30 tabs 09/22/19 metoprolol succinate 25 mg 25 mg PO DAILY #30 tabs 09/22/19 tablet,extended release 24 hr acetaminophen 500 mg tablet 1,000 mg (2 x 500 mg) PO Q8H PRN 01/02/23 pain #90 tabs cephalexin 500 mg capsule 500 mg PO BID #20 caps 07/18/23 Allergies Allergy/AdvReac Type Severity Reaction Status Date / Time amoxicillin Allergy Intermediate Skin Rash Verified 07/17/23 22:03 colchicine Allergy Intermediate Skin Rash Verified 07/17/23 22:03 General Stated Complaint: GenMedical ALBERT: 4 Review of Systems Narrative: see HPI Exam Narrative Exam Narrative: General: Alert, well appearing, well nourished, in no acute distress. Head: Normocephalic, atraumatic Neck: Trachea midline, ?Neck supple. ENT: ?MMM.? No oropharygeal lesions or exudate. Cardiac: ?RRR, no murmurs appreciated Resp: No respiratory distress. CTAB. Abd: ?Soft, non-distended, nontender : ?No suprapubic tenderness. No CVA tenderness. Extremities: ?No deformities.? No peripheral edema. Neuro: ? GCS 15.? PERRL.? EOMI.? Fluent speech, no dysarthria. Motor- 5/5 strength symmetric bilateral upper and lower extremities Sensation- ?Intact to light touch and symmetric multiple dermatomes including upper and lower extremities Coordination- No dysmetria on finger to nose Gait/station: ?Normal stance.? No truncal ataxia. Steady gait with equal normal steps CRANIAL NERVES: II: Pupils equal and reactive, III, IV, : EOM intact, no gaze preference or deviation, no nystagmus. V: normal sensation in V1, V2, and V3 segments bilaterally VII: no asymmetry, no nasolabial fold flattening VIII: normal hearing to speech IX, X: normal palatal elevation, no uvular deviation XI: 5/5 head turn and 5/5 shoulder shrug bilaterally XII: midline tongue protrusion Course Vital Signs Vital signs: Vital Signs Temperature 36.7 C 07/17/23 21:56 Pulse 103 H 07/17/23 21:56 Respiratory Rate 16 07/17/23 21:56 Blood Pressure 159/92 H 07/17/23 21:56 Pulse Oximetry 98 07/17/23 21:56 Temperature 36.7 C 07/17/23 21:56 Temperature Source Temporal Artery Scan 07/17/23 21:56 Pulse 103 H 07/17/23 21:56 Respiratory Rate 14 07/17/23 22:36 Respiratory Effort Normal, Non-Labored 07/17/23 22:02 Blood Pressure 159/92 H 07/17/23 21:56 Pulse Oximetry 98 07/17/23 21:56 Oxygen Delivery Method Room Air 07/17/23 21:56 Oxygen Flow Rate 0 07/17/23 21:56 Pain Level 0 07/17/23 22:36 Lab/Test Results Lab/Test Results: Laboratory Tests Range/Units 07/17/23 22:35 WBC (4.4-10.8) 10^3/uL 8.50 RBC (3.93-5.22) 10^6/uL 3.96 Hgb (11.2-15.7) g/dL 12.1 Hct (36.0-46.0) % 37.8 MCV (80-95) fL 96 H MCH (27.0-33.0) pg 30.6 MCHC (32.0-36.0) % 32.0 RDW (11.7-14.6) % 14.6 Plt Count (130-400) 10^3/uL 288 MPV (8.0-11.0) fL 9.2 Immature Gran % % 0.4 Neutrophils % % 54.0 Lymphocytes % % 33.5 Monocytes % % 7.1 Eosinophils % % 4.5 Basophils % % 0.5 Nucleated RBC % (0.0-0.3) % 0.0 Absolute Neutrophils (1.2-6.7) 10^3/uL 4.60 Absolute Lymphocytes (1.2-3.4) 10^3/uL 2.85 Absolute Monocytes (0.1-0.8) 10^3/uL 0.60 Absolute Eosinophils (0.0-0.7) 10^3/uL 0.38 Absolute Basophils (0.0-0.2) 10^3/uL 0.04 Sodium (136-145) mmol/L 140 Potassium (3.5-5.1) mmol/L 3.7 Chloride (98-107) mmol/L 103 Carbon Dioxide (21.0-32.0) mmol/L 25.6 Anion Gap (3-11) mmol/L 11.4 H BUN (7-18) mg/dL 31 H Creatinine (0.55-1.02) mg/dL 1.2 H Est GFR (CKD-EPI 2020) (mL/min/1.73m2) 44.36 Glucose (74-106) mg/dL 109 H Calcium (8.5-10.1) mg/dL 9.7 Total Bilirubin (0.2-1.0) mg/dL 0.2 AST (15-37) U/L 18 ALT (14-59) U/L 21 Alkaline Phosphatase (46-116) U/L 107 Total Protein (6.4-8.2) g/dL 7.2 Albumin (3.4-5.0) g/dL 3.7 Ethyl Alcohol (<10) mg/dL 6.6 Medical Decision Making 87yo F with hx of asthma, HTN, hypothyroid, presenting for dry mouth and 'dizziness' onset around 1900. Did have 2 glasses of white wine with dinner, did not eat anything out of the ordinary for her. Difficulty to characterize her symptoms- does not seem to be presyncopal or vertiginous, her dizziness is described as 'just not feeling right' and 'like I'm not in the right spot' and 'everything is 2 dimensional'. Slightly hypertensive on arrival SBP 150's, vital signs otherwise reassuring. Not septic. Benign physical and neuologic exam with no focal deficits. Description of symptoms, and neuro exam, not consistent with stroke including not consistent with posterior infarct. Would not give tPA or active stroke alert. EKG with LBBB (old), Sgarbossa negative, no indication of occlusive LA. Will evaluate for potential etiologies of encephalopathy with labs, UA, CT. Labs reviewed as below, CT reassuring with no leuckotysois or anemia, CMP with normal LFTs and normal electrolytes (BUN and Cr are slightly elevated at 31 and 1.2 respectively; not suggestive of kidney failure or uremic encephalopathy), TSH borderline high with normal T4, ETOH not suggestive of intoxication, troponin negative in the setting of 4+ hours of symptoms (would not further pursue ACS). UA with possible UTI, 5-10 WBCs and trace leuk esterace. CT head independently reviewed, no intracranial bleed or mass on my view; discussed wtih [facility] radiologist and agree with radiology read below with no acute findings. On reassessment patient reports feeling much better and 'back to normal'. Unclear etiology of symptoms; out of an abundance of caution will treat for UTI wtih course of cephalexin. TIA possible though less likely with normal neurologic exam and non-specific symptoms. With reassuring workup here and patient back to baseline, appropriate for close outpatient followup with PCP. Discharged home; discharge instructions and return precautions were reviewed with patient and partner who verbalized understanding. All questions were answered and they are in full agreement with the plan. Imaging Data Radiologic Study: Imaging: CT Scan Radiologist's impression: IMPRESSION: No large vessel stenosis or occlusion detected involving the major branches of the anterior or posterior intracranial circulation. Lab Data Lab results reviewed: Yes I reviewed the patient's lab results. Labs: 07/17/23 23:25 Urine - Clean Catch Urine Culture - Pending Laboratory Tests Range/Units 07/17/23 07/17/23 22:35 23:25 WBC (4.4-10.8) 10^3/uL 8.50 RBC (3.93-5.22) 10^6/uL 3.96 Hgb (11.2-15.7) g/dL 12.1 Hct (36.0-46.0) % 37.8 MCV (80-95) fL 96 H MCH (27.0-33.0) pg 30.6 MCHC (32.0-36.0) % 32.0 RDW (11.7-14.6) % 14.6 Plt Count (130-400) 10^3/uL 288 MPV (8.0-11.0) fL 9.2 Immature Gran % % 0.4 Neutrophils % % 54.0 Lymphocytes % % 33.5 Monocytes % % 7.1 Eosinophils % % 4.5 Basophils % % 0.5 Nucleated RBC % (0.0-0.3) % 0.0 Absolute Neutrophils (1.2-6.7) 10^3/uL 4.60 Absolute Lymphocytes (1.2-3.4) 10^3/uL 2.85 Absolute Monocytes (0.1-0.8) 10^3/uL 0.60 Absolute Eosinophils (0.0-0.7) 10^3/uL 0.38 Absolute Basophils (0.0-0.2) 10^3/uL 0.04 Sodium (136-145) mmol/L 140 Potassium (3.5-5.1) mmol/L 3.7 Chloride (98-107) mmol/L 103 Carbon Dioxide (21.0-32.0) mmol/L 25.6 Anion Gap (3-11) mmol/L 11.4 H BUN (7-18) mg/dL 31 H Creatinine (0.55-1.02) mg/dL 1.2 H Est GFR (CKD-EPI 2020) (mL/min/1.73m2) 44.36 Glucose (74-106) mg/dL 109 H Calcium (8.5-10.1) mg/dL 9.7 Total Bilirubin (0.2-1.0) mg/dL 0.2 AST (15-37) U/L 18 ALT (14-59) U/L 21 Alkaline Phosphatase (46-116) U/L 107 Total Protein (6.4-8.2) g/dL 7.2 Albumin (3.4-5.0) g/dL 3.7 TSH (0.36-3.74) uIU/Ml 3.75 H Thyroxine (T4) (4.7-13.3) ug/dL 6.7 Urine Color (Yellow) Yellow Urine Clarity (Clear) Sl Cloudy Urine pH (5-8) 5.0 Ur Specific Dawson (1.005-1.025) >= 1.030 H Urine Protein (Neg-Trace) mg/dL Negative Urine Ketones (Negative) mg/dL Negative Urine Blood (Negative) Moderate H Urine Nitrite (Negative) Negative Urine Bilirubin (Negative) Negative Urine Urobilinogen (Up to 0.2) mg/dL 0.2 Ur Leukocyte Esterase (Negative) Trace H Urine RBC (0-2) HPF 5-10 H Urine WBC (0-5) HPF 5-10 Ur Epithelial Cells (Negative) HPF Few Urine Crystals (Negative) HPF Negative Urine Bacteria (Negative) HPF Few Urine Casts (Negative) LPF 0-2 Hyaline Urine Mucus (Negative) Negative Urine Other (Negative) Few Transitional Ur Culture Indicated? No Urine Glucose (Negative) mg/dL Negative Ethyl Alcohol (<10) mg/dL 6.6 Quality:SDOH Health Related Social Needs: No Data to Display PFSH All Active Problems (Updated 07/18/23 @ 00:13 by Malathi Luna MD) Encephalopathy (Acute) Urinary tract infection (Acute) History of total right hip replacement (Acute 01/02/23) Primary osteoarthritis of left knee (Acute) Steroid injection: 04/19/23; 01/15/23; 10/16/22; 06/30/22; 04/03/22; 12/08/2021 Nonischemic cardiomyopathy (Acute) Chest pain (Acute) Mitral regurgitation (Chronic) Medication management (Acute) Generalized weakness (Acute) Hypothyroid (Chronic) HTN (hypertension) (Chronic) Asthma (Chronic) CHF (congestive heart failure) (Chronic) Surgical History Right wrist fracture Torticollis H/O arthroscopy of knee Denies Social History Smoking/Tobacco Use Status: Never Smoking risk assessment performed?: Yes Alcohol Intake: current Alcohol Intake frequency: 0-2 drinks per day Alcohol type: wine Drug use: Never Substance use type: does not use Housing: house Do you feel safe at home: Yes Do you feel safe in your relationship?: Yes PAWSS Have you Been Recently Intoxicated or Drunk Within the Last 30 days?: No Have you Ever Experienced Previous Episodes of Alcohol Withdrawal?: No Have you ever Experienced Withdrawal Seizures?: No Have you ever Experienced Delirium Tremens(DT)s?: No Have you ever undergone Alcohol Rehabilitation Treatment (i.e, inpt ot outpatient treatment programs)?: No Have you ever Experienced Blackouts?: No Have you ever Combined Alcohol with other Downers within the last 90 days?: No Have you ever Combined Alcohol with any other Substance of Abuse during the last 90 days?: No Positive Blood Alcohol level on Presentation? [PCS.BAL]: No Evidence of Increased Autonomic Activity (i.e. HR>120, tremor, sweating, agitation, nausea)?: No Result: 0
[2023-07-17 23:16] VITALS: PULSE 94; RESP 17; O2SAT 95
[2023-07-17 23:18] VITALS: RESP 16
[2023-07-17] MEDS: Omnipaque 350 MG/ML 100 ML BTL IJ (23:19)
[2023-07-17] MEDS: Normal Saline - Diluent 50 ML VIAL IJ (23:19)
[2023-07-17 23:20] VITALS: PULSE 80; RESP 14; O2SAT 99
[2023-07-17] MEDS: Normal Saline Flush 10 ML SYR IVP (23:20)
[2023-07-17 23:31] LABS: Bilirubin Negative (Negative); Blood Moderate (Negative); Clarity Sl Cloudy (Clear); Glucose Negative (Negative); Ketones Negative (Negative); Leukocyte Esterase Trace (Negative); Nitrite Negative (Negative); Specific Gravity >= 1.030 (1.005-1.025); Urobilinogen 0.2 mg/dL (Up to 0.2)
[2023-07-17 23:32] LABS: TSH 3.75 uIU/Ml (0.36-3.74)
[2023-07-17 23:44] LABS: Bacteria Few HPF (Negative); Crystals Negative HPF (Negative); Epithelial Cells Few HPF (Negative); Other Cells Few Transitional (Negative)
[2023-07-17 23:45] LABS: C & S Indicated? No; Casts 0-2 Hyaline LPF (Negative); Mucus Negative (Negative)
[2023-07-17 23:50] VITALS: O2SAT 97
[2023-07-18] VITALS: PULSE 90; RESP 15; O2SAT 98
--- NOTE | 2023-07-18 00:04 | DI.VRAD_ITS ---
Addendum created by Faraz Rios MD on 07/18/2023 12:07:21 AM EDT: THIS REPORT CONTAINS FINDINGS THAT MAY BE CRITICAL TO PATIENT CARE. The findings were verbally communicated via telephone conference with MARYANA MIRANDA at 12:07 AM EDT on 07/18/2023. The findings were acknowledged and understood. Initial report created on 07/18/2023 12:03:39 AM EDT: PROCEDURE INFORMATION: Exam: CTA Head With Contrast, Arteriography Exam date and time: 07/17/2023 11:22 PM Age: 87 years old Clinical indication: Stroke-like symptoms; Altered mental status/memory loss; Additional info: Confusion TECHNIQUE: Imaging protocol: Computed tomographic angiography of the head with contrast. Exam focused on the arteries. 3D rendering (Not supervised by radiologist): MIP and/or 3D reconstructed images were created by the technologist. Radiation optimization: All CT scans at this facility use at least one of these dose optimization techniques: automated exposure control; mA and/or kV adjustment per patient size (includes targeted exams where dose is matched to clinical indication); or iterative reconstruction. Contrast material: OMNIPAQUE 350; Contrast volume: 100 ml; Contrast route: INTRAVENOUS (IV); COMPARISON: No relevant prior studies available. FINDINGS: ANTERIOR CIRCULATION: Right internal carotid artery: Intracranial segment is patent with no significant stenosis. No aneurysm. Right middle cerebral artery: No occlusion or significant stenosis. No aneurysm. Right anterior cerebral artery: No occlusion or significant stenosis. No aneurysm. Left internal carotid artery: Intracranial segment is patent with no significant stenosis. No aneurysm. Left middle cerebral artery: No occlusion or significant stenosis. No aneurysm. Left anterior cerebral artery: No occlusion or significant stenosis. No aneurysm. POSTERIOR CIRCULATION: Right vertebral artery: No occlusion or significant stenosis. No aneurysm. Left vertebral artery: No occlusion or significant stenosis. No aneurysm. Basilar artery: No occlusion or significant stenosis. No aneurysm. Right posterior cerebral artery: No occlusion or significant stenosis. No aneurysm. Left posterior cerebral artery: No occlusion or significant stenosis. No aneurysm. Brain: Cerebral atrophy and underlying microvascular ischemic changes with no intracranial mass, acute transcortical infarction or recent intracranial hemorrhage detected. Cerebral ventricles: No midline shift or hydrocephalus. Mastoid air cells: Grossly clear bilaterally. Paranasal sinuses: Minimal soft tissue layers along the posterior margin of the left maxillary sinus with other paranasal sinuses grossly clear throughout. Bones/joints: No acute fracture. Soft tissues: Unremarkable. IMPRESSION: No large vessel stenosis or occlusion detected involving the major branches of the anterior or posterior intracranial circulation. Dictated and Authenticated by: Faraz Rios MD. Ordering:ANGE Servin MD
[2023-07-18 00:10] VITALS: PULSE 85; RESP 14; O2SAT 99
[2023-07-18 00:14] LABS: T4 6.7 ug/dL (4.7-13.3)
[2023-07-18 00:15] VITALS: BP 183/71; PULSE 83; PULSE 85; RESP 11; O2SAT 98
[2023-07-18 00:20] LABS: Troponin I < 50 ng/L (< or =60)
[2023-07-18] MEDS: Cephalexin 500 MG CAP PO (00:24)
[2023-07-18 00:26] VITALS: TEMP 36.4
== END 2023-07-18 00:26 | disposition home or self-care (01) ==
PROVIDERS: Emergency Provider Student in an Organized Health Care Education/Training Program; PCP Family Medicine
DX: N39.0 Urinary tract infection, site not specified (principal); G93.40 Encephalopathy, unspecified; R42 Dizziness and giddiness; R68.2 Dry mouth, unspecified; I10 Essential (primary) hypertension
CPT/HCPCS: 36415; 36416; 70496; 80053; 82962; 93005; 99285; 80320; 81003; 81015; 84436; 84443; 84484; 85025; 87086; 93010; 99283; J3490

== ENCOUNTER → 2023-07-23 09:23 | Outpatient (BNVA) | payer MEDICARE, SELFPAY | PROVIDERS: PCP Family Medicine; Visit Provider Student in an Organized Health Care Education/Training Program | DX: M17.12 Unilateral primary osteoarthritis, left knee (principal); Z96.641 Presence of right artificial hip joint | CPT/HCPCS: 20610; J1010 ==

== ENCOUNTER 2023-12-13 10:13 | Outpatient (CLI) | payer MEDICARE, SELFPAY | END 2023-12-13 10:14 | disposition home or self-care (01) | LOC: DI.CARD 10:13 | PROVIDERS: PCP Family Medicine; Visit Provider Internal Medicine Cardiovascular Disease | DX: R07.9 Chest pain, unspecified (principal) | CPT/HCPCS: 93010 ==